=== PATIENT | male | born 1940 | race American Indian/Alaskan Native ===

== ENCOUNTER 2017-09-28 18:42 | Emergency (ER) | payer MEDICARE ==
[2017-09-28 20:15] LABS: Bilirubin,Urine NEG (Negative); Blood,Urine NEG (Negative); Color,Urine Yellow (Yellow); Nitrite,Urine NEG (Negative); Urobilinogen,Urine < 2.0 mg/dL (<2.0)
[2017-09-28] MEDS ORDERED: TYLENOL PO ONE (21:46)
--- NOTE | 2017-09-28 21:49 | Emergency Department Report ---
ED Back Pain/Injury HPI - General Chief Complaint: Pain General Stated Complaint: GOUT PAIN Time Seen by Provider: 09/28/17 21:15 Source: patient Limitations: No Limitations - History of Present Illness Initial Comments: 76-year-old male past medical history gout, chronic knee and lower back and hip pain. Presents with complaint of 3 weeks of persistent lower back and hip pain. States he has taken some [id number] analgesics with minimal relief of pain. Denies any recent falls denies any recent fever chills nausea vomiting abdominal pain or chest pain. Patient is ambulatory without assistance. States he has been opening up his garage door manually this week and may have strained his lower back. Denies bladder or bowel incontinence. MD Complaint: back pain Onset/Timin -: week(s) Place: home Severity: moderate Severity scale (0 -10): 6 Quality: aching Consistency: constant Improves With: none Context: while lifting, turning/twisting, bending Associated Symptoms: denies other symptoms - Related Data Home Medications Medication Instructions Recorded Confirmed Last Taken Prednisone [predniSONE 10 mg 10 mg PO 04/22/13 04/22/13 04/21/13 18:00 (6-Day Pack, 21 Tabs)] Triamterene [Dyrenium] 37.5 mg PO 04/22/13 04/22/13 12/04/15 Previous Rx's Medication Instructions Recorded Last Taken Type Hydrocodone Bit/Acetaminophen 1 each PO Q4-6H PRN #12 tablet 04/22/13 Unknown Rx [Lortab 5-500 Tablet] Diclofenac [Ko Acevedo] 75 mg PO Q12H #60 tablet 01/05/14 Unknown Rx Cyclobenzaprine HCl [Flexeril 5 MG 5 mg PO TID PRN #30 tab 12/04/15 Unknown Rx TAB] oxyCODONE /ACETAMINOPHEN [Percocet 1 tab PO Q6HR PRN #20 tablet 12/04/15 Unknown Rx 5/325] HYDROcodone/APAP 5-325 [[place] 1 each PO Q8HR PRN #20 tablet 07/09/16 Unknown Rx 5-325 mg TAB] Acetaminophen [Acetaminophen TAB] 500 mg PO Q6HR PRN #30 tablet 09/28/17 Unknown Rx Diclofenac Sodium 50 mg PO BID PRN #20 tablet. 09/28/17 Unknown Rx Allergies Allergy/AdvReac Type Severity Reaction Status Date / Time No Known Allergies Allergy Unverified 09/28/17 22:01 ED Review of Systems ROS: Stated complaint: GOUT PAIN Other details as noted in HPI Constitutional: denies: chills, fever Eyes: denies: eye pain, eye discharge, vision change ENT: denies: ear pain, throat pain Respiratory: denies: cough, shortness of breath, wheezing Cardiovascular: denies: chest pain, palpitations Endocrine: no symptoms reported Gastrointestinal: denies: abdominal pain, nausea, diarrhea Genitourinary: denies: urgency, dysuria Musculoskeletal: as per HPI (history of chronic back and hip pain). denies: back pain, joint swelling, arthralgia Skin: denies: rash, lesions Neurological: denies: headache, weakness, paresthesias Psychiatric: denies: anxiety, depression Hematological/Lymphatic: denies: easy bleeding, easy bruising ED Past Medical Hx - Past Medical History Previous Medical History?: Yes Hx Hypertension: Yes Hx Arthritis: Yes (GOUT) - Surgical History Past Surgical History?: No - Social History Smoking Status: Former Smoker Substance Use Type: None - Medications Home Medications: Home Medications Medication Instructions Recorded Confirmed Last Taken Type Hydrocodone Bit/Acetaminophen 1 each PO Q4-6H PRN #12 tablet 04/22/13 Unknown Rx [Lortab 5-500 Tablet] Prednisone [predniSONE 10 mg 10 mg PO 04/22/13 04/22/13 04/21/13 18:00 History (6-Day Pack, 21 Tabs)] Triamterene [Dyrenium] 37.5 mg PO 04/22/13 04/22/13 12/04/15 History Maryam Acevedo [Ko Acevedo] 75 mg PO Q12H #60 tablet 01/05/14 Unknown Rx Cyclobenzaprine HCl [Flexeril 5 MG 5 mg PO TID PRN #30 tab 12/04/15 Unknown Rx TAB] oxyCODONE /ACETAMINOPHEN [Percocet 1 tab PO Q6HR PRN #20 tablet 12/04/15 Unknown Rx 5/325] HYDROcodone/APAP 5-325 [[place] 1 each PO Q8HR PRN #20 tablet 07/09/16 Unknown Rx 5-325 mg TAB] Acetaminophen [Acetaminophen TAB] 500 mg PO Q6HR PRN #30 tablet 09/28/17 Unknown Rx Diclofenac Sodium 50 mg PO BID PRN #20 tablet. 09/28/17 Unknown Rx ED Physical Exam - General Limitations: No Limitations General appearance: alert, in no apparent distress - Head Head exam: Present: atraumatic, normocephalic - Eye Eye exam: Present: normal appearance, PERRL, EOMI - ENT ENT exam: Present: mucous membranes moist - Neck Neck exam: Present: normal inspection - Respiratory Respiratory exam: Present: normal lung sounds bilaterally. Absent: respiratory distress - Cardiovascular Cardiovascular Exam: Present: regular rate, normal rhythm. Absent: systolic murmur, diastolic murmur, rubs, gallop - GI/Abdominal GI/Abdominal exam: Present: soft, normal bowel sounds - Rectal Rectal exam: Present: deferred - Extremities Exam Extremities exam: Present: normal inspection - Back Exam Back exam: Present: normal inspection - Neurological Exam Neurological exam: Present: alert, oriented X3, CN II-XII intact, normal gait - Expanded Neurological Exam Expanded Patient oriented to: Present: person, place, time Cranial nerves: EOM's Intact: Normal Cerebellar function: Finger to Nose: Normal, Heel to Moon: Normal Sensory exam: Upper Extremity Light Touch: Normal, Lower Extremity Light Touch: Normal Motor strength exam: RUE: 5, LUE: 5, RLE: 5, LLE: 5 Best Eye Response (Porsha): (1) no response Best Motor Response (Porsha): (6) obeys commands Best Verbal Response (Porsha): (5) oriented Porsha Total: 12 - Psychiatric Psychiatric exam: Present: normal affect, normal mood - Skin Skin exam: Present: warm, dry, intact, normal color. Absent: rash ED Course Vital Signs 09/28/17 09/28/17 19:17 21:53 Temperature 97.9 F Pulse Rate 81 Respiratory 20 18 Rate Blood Pressure 131/75 O2 Sat by Pulse 97 Oximetry ED Medical Decision Making - Medical Decision Making A/P: Chronic back and hip pain 1-patient is ambulatory with no direct trauma. I offered patient to do x-rays of his lower back and hips but patient states that he has had several x-rays within the last year that showed consistent arthritic changes. As patient is ambulatory and good strength in all extremities is reasonable to forego imaging at this time 2-extra strength Tylenol when necessary, short course diclofenac when necessary 3-PRIMARY care and orthopedics f/u Critical care attestation.: If time is entered above; I have spent that time in minutes in the direct care of this critically ill patient, excluding procedure time. ED Disposition Clinical Impression: Osteoarthritis Qualifiers: Osteoarthritis location: hip Osteoarthritis type: unspecified Laterality: bilateral Qualified Code(s): M16.0 - Bilateral primary osteoarthritis of hip Chronic hip pain Qualifiers: Laterality: unspecified laterality Qualified Code(s): M25.559 - Pain in unspecified hip Disposition: TO HOME OR SELFCARE Is pt being admited?: No Does the pt Need Aspirin: No Condition: Stable Instructions: Chronic Pain (ED), Musculoskeletal Pain (ED), Arthralgia (ED) Prescriptions: Acetaminophen [Acetaminophen TAB] 500 mg PO Q6HR PRN #30 tablet PRN Reason: Pain Diclofenac Sodium 50 mg PO BID PRN #20 tablet.dr [place] Reason: Pain Referrals: [facility] [Provider Group] - 3-5 Days [facility] [Outside] - 3-5 Days [facility] [Outside] - 3-5 Days MICHELLE SHAH MD [Staff Physician] - 3-5 Days Time of Disposition: 22:00
[2017-09-28 22:13] VITALS: BP 132/86
== END 2017-09-28 22:12 | disposition home or self-care (01) ==
LOC: ED 18:42
DX: M16.0 Bilateral primary osteoarthritis of hip (principal); G89.29 Other chronic pain; I10 Essential (primary) hypertension; M10.9 Gout, unspecified; Z87.891 Personal history of nicotine dependence
CPT/HCPCS: 81001; 99283

== ENCOUNTER 2018-01-02 11:46 | Emergency (ER) | payer MEDICARE ==
[2018-01-02 11:57] VITALS: BP 140/70
[2018-01-02] MEDS ORDERED: TORADOL IM ONE (14:36)
--- NOTE | 2018-01-02 14:41 | Emergency Department Report ---
ED Back Pain/Injury HPI - General Chief Complaint: Back Pain/Injury Stated Complaint: PULLED MUSCLE RIGHT SIDE Time Seen by Provider: 01/02/18 14:27 Source: patient Limitations: No Limitations - History of Present Illness Initial Comments: 77-year-old male with a past medical history of gout, arthritis, and lower back pain 1 month presents to the hospital with complaints of intermittent right lower back pain. Pain is aching, intermittent, worse with movement and palpation. Triage states that pain radiates dilate the patient denies leg numbness appears to lesions. Symptoms started while bending down to lift an object. He denies fever, dysuria, hematuria, nausea, vomiting, paresthesias, or weakness. Patient states he has been treated with Diflucan and Tramadol for pain in the past which seemed to help but he no longer has any meds. PMD Jack Esposito - Related Data Home Medications Medication Instructions Recorded Confirmed Last Taken Prednisone [predniSONE 10 mg 10 mg PO 04/22/13 04/22/13 04/21/13 18:00 (6-Day Pack, 21 Tabs)] Triamterene [Dyrenium] 37.5 mg PO 04/22/13 04/22/13 12/04/15 Previous Rx's Medication Instructions Recorded Last Taken Type Hydrocodone Bit/Acetaminophen 1 each PO Q4-6H PRN #12 tablet 04/22/13 Unknown Rx [Lortab 5-500 Tablet] Diclofenac [Ko Acevedo] 75 mg PO Q12H #60 tablet 01/05/14 Unknown Rx Cyclobenzaprine HCl [Flexeril 5 MG 5 mg PO TID PRN #30 tab 12/04/15 Unknown Rx TAB] oxyCODONE /ACETAMINOPHEN [Percocet 1 tab PO Q6HR PRN #20 tablet 12/04/15 Unknown Rx 5/325] HYDROcodone/APAP 5-325 [[place] 1 each PO Q8HR PRN #20 tablet 07/09/16 Unknown Rx 5-325 mg TAB] Acetaminophen [Acetaminophen TAB] 500 mg PO Q6HR PRN #30 tablet 09/28/17 Unknown Rx Diclofenac Sodium 50 mg PO BID PRN #20 tablet. 01/02/18 Unknown Rx traMADol [Ultram 50 MG tab] 50 mg PO Q6HR PRN #20 tablet 01/02/18 Unknown Rx Allergies Allergy/AdvReac Type Severity Reaction Status Date / Time Penicillins Allergy Rash Verified 01/02/18 11:54 ED Review of Systems ROS: Stated complaint: PULLED MUSCLE RIGHT SIDE Other details as noted in HPI Comment: All other systems reviewed and negative ED Past Medical Hx - Past Medical History Previous Medical History?: Yes Hx Hypertension: Yes Hx Arthritis: Yes (GOUT) - Surgical History Past Surgical History?: No - Social History Smoking Status: Never Smoker Substance Use Type: None - Medications Home Medications: Home Medications Medication Instructions Recorded Confirmed Last Taken Type Hydrocodone Bit/Acetaminophen 1 each PO Q4-6H PRN #12 tablet 04/22/13 Unknown Rx [Lortab 5-500 Tablet] Prednisone [predniSONE 10 mg 10 mg PO 04/22/13 04/22/13 04/21/13 18:00 History (6-Day Pack, 21 Tabs)] Triamterene [Dyrenium] 37.5 mg PO 04/22/13 04/22/13 12/04/[address] [Ko Acevedo] 75 mg PO Q12H #60 tablet 01/05/14 Unknown Rx Cyclobenzaprine HCl [Flexeril 5 MG 5 mg PO TID PRN #30 tab 12/04/15 Unknown Rx TAB] oxyCODONE /ACETAMINOPHEN [Percocet 1 tab PO Q6HR PRN #20 tablet 12/04/15 Unknown Rx 5/325] HYDROcodone/APAP 5-325 [[place] 1 each PO Q8HR PRN #20 tablet 07/09/16 Unknown Rx 5-325 mg TAB] Acetaminophen [Acetaminophen TAB] 500 mg PO Q6HR PRN #30 tablet 09/28/17 Unknown Rx Diclofenac Sodium 50 mg PO BID PRN #20 tablet. 01/02/18 Unknown Rx traMADol [Ultram 50 MG tab] 50 mg PO Q6HR PRN #20 tablet 01/02/18 Unknown Rx ED Physical Exam - General Limitations: No Limitations - Other Other exam information: General: No limitations, patient is alert in no acute distress Head exam: Atraumatic, normocephalic Eyes exam: Normal appearance ENT: Moist mucous membrane, normal oropharynx Neck exam: Normal inspection, full range of motion, no meningismus nontender Respiratory exam: Clear to auscultation bilateral, no wheezes, rales, crackles Cardiovascular: Normal rate and rhythm, normal heart sounds Abdomen: Soft, nondistended, and nontender, with normal bowel sounds, no rebound, or guarding Extremity: Full range of motion normal inspection no deformity Back: Normal Inspection, full range of motion, no midline tenderness. Right- sided back muscular tenderness. Mild swelling to second MTP joint of r hand Neurologic: Alert, oriented x3, cranial nerves intact, no motor or sensory deficit Psychiatric: normal affect, normal mood Skin: Warm, dry, intact ED Course Vital Signs 01/02/18 11:54 Temperature 98.9 F Pulse Rate 72 Respiratory 16 Rate Blood Pressure 140/70 O2 Sat by Pulse 100 Oximetry ED Medical Decision Making - Medical Decision Making Patient will be treated symptomatically with diclofenac and tramadol as requested and encouraged to follow up with PMD for further evaluation - Differential Diagnosis muscle strain, radiculopathy, Critical Care Time: No Critical care attestation.: If time is entered above; I have spent that time in minutes in the direct care of this critically ill patient, excluding procedure time. ED Disposition Clinical Impression: Back strain Disposition: - TO HOME OR SELFCARE Is pt being admited?: No Does the pt Need Aspirin: No Condition: Stable Instructions: Low Back Strain (ED) Additional Instructions: Take the medication as prescribed. Return if symptoms worsen. Follow up with your doctor or the doctor provided. Prescriptions: Diclofenac Sodium 50 mg PO BID PRN #20 tablet. PRN Reason: Pain traMADol [Ultram 50 MG tab] 50 mg PO Q6HR PRN #20 tablet PRN Reason: Pain Referrals: PRISCILA ROACH MD [Staff Physician] - 3-5 Days Time of Disposition: 14:45
== END 2018-01-02 15:08 | disposition home or self-care (01) ==
LOC: ED 11:46
DX: S39.012A Strain of muscle, fascia and tendon of lower back, initial encounter (principal); I10 Essential (primary) hypertension; M19.90 Unspecified osteoarthritis, unspecified site; Z88.0 Allergy status to penicillin; X58.XXXA Exposure to other specified factors, initial encounter; Y93.89 Activity, other specified; Y92.89 Other specified places as the place of occurrence of the external cause; Y99.8 Other external cause status
CPT/HCPCS: 96372; 99282; J1885

== ENCOUNTER 2018-02-06 12:23 | Emergency (ER) | payer MEDICARE ==
[2018-02-06 12:35] VITALS: BP 168/67
[2018-02-06] MEDS ORDERED: TYLENOL PO ONE (14:51)
--- NOTE | 2018-02-06 14:52 | Emergency Department Report ---
ED Back Pain/Injury HPI - General Chief Complaint: Back Pain/Injury Stated Complaint: BACK PAIN Time Seen by Provider: 02/06/18 14:44 Source: patient Limitations: No Limitations - History of Present Illness Initial Comments: This is a 77-year-old male here for back pain. He said he has a history of back pain and his primary care doctor is Dr. Michele Obando but he missed an appointment with him. He said he has an appointment scheduled but he needs a refill on his blood pressure medication and some other medication. She reports that 2 weeks ago he was trying to manually lift his garage door and he reinjured his back. Pain is located bilateral lower back it is 8 out of 10 and a can. Patient said he has a history of football injury in the past and he suffers from back pain. He usually takes tramadol and diclofenac that he ran out. He said he took Tylenol last night but it's not helping his pain. Denies any fever or chills. Denies any nausea or vomiting, denies any loss of bowel or bladder function. Denies any numbness or tingling to extremities. Pain is better with rest and worse with walking around. MD Complaint: back pain Onset/Timin -: week(s) Similar Symptoms Previously: Yes Place: home Radiation: none Severity: severe Severity scale (0 -10): 8 Quality: aching Consistency: constant Improves With: immobilization Worsens With: movement, walking Context: while lifting Associated Symptoms: denies: confusion, weakness, chest pain, numbness, difficulty walking, cough, difficulty urinating, diaphoresis, incontinence, fever/chills, constipation, headaches, abdominal pain, loss of appetite, malaise , nausea/vomiting, seizure, shortness of breath, syncope Treatments Prior to Arrival: acetaminophen - Related Data Home Medications Medication Instructions Recorded Confirmed Last Taken Prednisone [predniSONE 10 mg 10 mg PO 04/22/13 04/22/13 04/21/13 18:00 (6-Day Pack, 21 Tabs)] Previous Rx's Medication Instructions Recorded Last Taken Type Hydrocodone Bit/Acetaminophen 1 each PO Q4-6H PRN #12 tablet 04/22/13 Unknown Rx [Lortab 5-500 Tablet] Cyclobenzaprine HCl [Flexeril 5 MG 5 mg PO TID PRN #30 tab 12/04/15 Unknown Rx TAB] oxyCODONE /ACETAMINOPHEN [Percocet 1 tab PO Q6HR PRN #20 tablet 12/04/15 Unknown Rx 5/325] HYDROcodone/APAP 5-325 [[place] 1 each PO Q8HR PRN #20 tablet 07/09/16 Unknown Rx 5-325 mg TAB] Acetaminophen [Acetaminophen TAB] 500 mg PO Q6HR PRN #30 tablet 09/28/17 Unknown Rx Diclofenac Sodium 50 mg PO BID PRN #20 tablet. 01/02/18 Unknown Rx Diclofenac [Ko Acevedo] 75 mg PO Q12H PRN #20 tablet 02/06/18 Unknown Rx Triamterene [Dyrenium] 37.5 mg PO QAM 30 Days #30 capsule 02/06/18 Unknown Rx traMADol [Ultram 50 MG tab] 50 mg PO Q6HR PRN #20 tablet 02/06/18 Unknown Rx Allergies Allergy/AdvReac Type Severity Reaction Status Date / Time Penicillins Allergy Rash Verified 02/06/18 12:31 ED Review of Systems ROS: Stated complaint: BACK PAIN Other details as noted in HPI Constitutional: denies: chills, fever Eyes: denies: eye pain, vision change Respiratory: denies: cough, shortness of breath, SOB with exertion, SOB at rest , stridor, wheezing Cardiovascular: denies: chest pain, palpitations, dyspnea on exertion, edema, syncope, paroxysmal nocturnal dyspnea Gastrointestinal: denies: abdominal pain, nausea, vomiting, diarrhea Genitourinary: denies: hematuria Musculoskeletal: back pain. denies: joint swelling, arthralgia, myalgia Skin: denies: rash, lesions Neurological: denies: headache, weakness, numbness, paresthesias, confusion, abnormal gait, vertigo ED Past Medical Hx - Past Medical History Medical history: arthritis, hypertension Chronic back pain. Gout Surgical history: no surgical history Psychiatric history: no pertinent history Family history: diabetes, hypertension - Social History Smoking Status: Former Smoker Alcohol use: none Drug use: none ED Back Pain Physical Exam - Exam General: Vital signs noted. No distress. Alert and acting appropriately. This is a 77-year-old male well-nourished well-developed in no acute distress. Lungs: CTAB, normal work of breathing CV: S1, S2. Regular rate and rhythm Psych: Normal mood and behavior Back/Abdomen: No Abdominal Tenderness ( NTTP in all quadrants), No Perithoracic Tenderness, No Perilumbar Tenderness, No Sacroiliac Tenderness, No Flank Tenderness, No Straight Leg Raise Pain Neuro: Yes Normal Sensation (no clubbing, cyanosis or edema. +2 pulses all extremities and no neurovascular compromise.), Yes Normal DTR's, Yes Normal Gait , No Motor Weakness ED Course Vital Signs 02/06/18 12:31 Temperature 98 F Pulse Rate 59 L Respiratory 18 Rate Blood Pressure 168/67 O2 Sat by Pulse 98 Oximetry - Reevaluation(s) Reevaluation #1: 02/06/18 16:01 She receives Tylenol 500 mg by mouth in emergency room which relieved his back pain down to 310. He said he is feeling better ED Medical Decision Making - Medical Decision Making This is a 77-year-old male here report in that he injured his back while lifting a garage door that was jammed. He said he's been having back pain 2 weeks and has been taking Tylenol and it's not getting better. Patient has a history of chronic back pain and is also requesting medication refill on his diclofenac, tramadol and triamterene which she said he gets in the mail but he did not receive it and he needs blood pressure medication. This patient was seen by myself and examined ,he has chronic back pain with acute exacerbation and also here for refill of medication. Patient is stable and pain management with Tylenol. He said he is feeling better. No need for any diagnostics or laboratory testing. A/P 1: Acute exacerbation of chronic lower back pain-Tylenol 500 mg given relief of pain and he feels better and we'll discharge home on diclofenac and tramadol which are refills 2: Essential hypertension-patient on triamterene and will refill his triamterene and he is to follow up with his primary care physician as scheduled. Patient educated on medication, Rice therapy, diagnosis, and to follow up with primary care physician as discussed. Patient will also be referred to orthopedic doctor at his request. Patient discharged home in stable condition to follow up with orthopedic doctor in 3 to 5 days and/or to return to the emergency room if his condition worsens. Patient vital signs are stable he is afebrile and nontoxic in appearance. He voices understanding of discharge instruction and discharged home with prescription for triamterene, diclofenac and tramadol. Critical care attestation.: If time is entered above; I have spent that time in minutes in the direct care of this critically ill patient, excluding procedure time. ED Disposition Clinical Impression: Acute exacerbation of chronic low back pain, Medication refill Hypertension Qualifiers: Hypertension type: essential hypertension Qualified Code(s): I10 - Essential ( primary) hypertension Disposition: TO HOME OR SELFCARE Is pt being admited?: No Does the pt Need Aspirin: No Condition: Stable Instructions: Hypertension (ED), Chronic Back Pain (ED) Additional Instructions: Follow-up the primary care physician as scheduled Follow up with orthopedic doctor as discussed. See referral in discharge instruction paperwork Please do not drive or operate heavy machinery while taking tramadol as this medication causes drowsiness Prescriptions: Diclofenac Dr [Voltaren Dr] 75 mg PO Q12H PRN #20 tablet PRN Reason: pain traMADol [Ultram 50 MG tab] 50 mg PO Q6HR PRN #20 tablet PRN Reason: Pain Triamterene [Dyrenium] 37.5 mg PO QAM 30 Days #30 capsule Referrals: PRIMARY CAREMD [Primary Care Provider] - 3-5 Days [facility] [Outside] - 3-5 Days MICHELLE SHAH MD [Staff Physician] - 3-5 Days
== END 2018-02-06 16:18 | disposition home or self-care (01) ==
LOC: ED 12:23
DX: M54.5 Low back pain (principal); G89.29 Other chronic pain; I10 Essential (primary) hypertension
CPT/HCPCS: 99282

== ENCOUNTER 2018-02-17 13:29 | Emergency (ER) | payer MEDICARE ==
[2018-02-17 13:46] VITALS: BP 141/62
--- NOTE | 2018-02-17 14:41 | Emergency Department Report ---
ED Rash HPI - HPI Chief Complaint: Skin Rash Stated Complaint: SPIDER BITE L ARM Time Seen by Provider: 02/17/18 14:22 Duration: 4 Days Location: Upper Extremities Suspected Cause: Insect Rash Symptoms: Yes Itching, No Facial Swelling, No Tongue/Oral Swelling, No Breathing Difficulties, No Choking Sensation, No Wheezing/Dyspnea, No Peeling, No Blistering, No Fever, No Lightheaded, No Malaise Other History: Patient states he was bitten on his left upper extremity several days ago and has had itching. Patient now is experiencing some diffuse redness to the left forearm. ED Review of Systems ROS: Stated complaint: SPIDER BITE L ARM Other details as noted in HPI Comment: All other systems reviewed and negative ED Past Medical Hx - Past Medical History Hx Hypertension: Yes Hx Arthritis: Yes (GOUT) Additional medical history: Chronic back pain. Gout - Surgical History Past Surgical History?: No - Social History Smoking Status: Former Smoker Substance Use Type: None - Medications Home Medications: Home Medications Medication Instructions Recorded Confirmed Last Taken Type Hydrocodone Bit/Acetaminophen 1 each PO Q4-6H PRN #12 tablet 04/22/13 Unknown Rx [Lortab 5-500 Tablet] Prednisone [predniSONE 10 mg 10 mg PO 04/22/13 04/22/13 04/21/13 18:00 History (6-Day Pack, 21 Tabs)] Cyclobenzaprine HCl [Flexeril 5 MG 5 mg PO TID PRN #30 tab 12/04/15 Unknown Rx TAB] oxyCODONE /ACETAMINOPHEN [Percocet 1 tab PO Q6HR PRN #20 tablet 12/04/15 Unknown Rx 5/325] HYDROcodone/APAP 5-325 [[place] 1 each PO Q8HR PRN #20 tablet 07/09/16 Unknown Rx 5-325 mg TAB] Acetaminophen [Acetaminophen TAB] 500 mg PO Q6HR PRN #30 tablet 09/28/17 Unknown Rx Diclofenac Sodium 50 mg PO BID PRN #20 tablet. 01/02/18 Unknown Rx Maryam Acevedo [Ko Acevedo] 75 mg PO Q12H PRN #20 tablet 02/06/18 Unknown Rx Triamterene [Dyrenium] 37.5 mg PO QAM 30 Days #30 capsule 02/06/18 Unknown Rx traMADol [Ultram 50 MG tab] 50 mg PO Q6HR PRN #20 tablet 02/06/18 Unknown Rx Doxycycline [Vibramycin CAP] 100 mg PO Q12HR #14 capsule 02/17/18 Unknown Rx Triamcinolone 0.1% [Kenalog 0.1% 1 applic TP TID #1 tube 02/17/18 Unknown Rx CREAM] diphenhydrAMINE [Benadryl CAP] 25 mg PO Q6HR PRN #15 capsule 02/17/18 Unknown Rx Rash Exam - Exam General: Vital signs noted. No distress. Alert and acting appropriately. HEENT: No Periorbital Edema, No Conjuctival Injection, No Chemosis, No Perioral Edema, No Tongue Edema, No Uvular Edema, No Compromised Airway, No Drooling Lungs: Yes Good Air Exchange (Normal Breath Sounds), No Wheezes, No Ronchi, No Stridor, No Cough, No Labored Respirations, No Retractions, No Use of Accessory Muscles, No Other Abnormal Lung Sounds Heart: Yes Regular, No Murmur Skin: Yes Maculopapular Rash (left forarm with 2 sm punture type lesions) Other: Positive: Abdomen Normal, Neurologic Normal, Musculoskeletal Normal ED Course Vital Signs 02/17/18 13:44 Temperature 98.2 F Pulse Rate 58 L Respiratory 18 Rate Blood Pressure 141/62 O2 Sat by Pulse 100 Oximetry Critical care attestation.: If time is entered above; I have spent that time in minutes in the direct care of this critically ill patient, excluding procedure time. ED Disposition Clinical Impression: Insect bite Qualifiers: Encounter type: initial encounter Qualified Code(s): W57.XXXA - Bitten or stung by nonvenomous insect and other nonvenomous arthropods, initial encounter Disposition: DC-01 TO HOME OR SELFCARE Is pt being admited?: No Does the pt Need Aspirin: No Condition: Stable Instructions: Insect Bite or Sting (ED) Prescriptions: diphenhydrAMINE [Benadryl CAP] 25 mg PO Q6HR PRN #15 capsule PRN Reason: Itching Doxycycline [Vibramycin CAP] 100 mg PO Q12HR #14 capsule Triamcinolone 0.1% [Kenalog 0.1% CREAM] 1 applic TP TID #1 tube
== END 2018-02-17 15:01 | disposition home or self-care (01) ==
LOC: ED 13:29
DX: R21 Rash and other nonspecific skin eruption (principal); I10 Essential (primary) hypertension; M19.90 Unspecified osteoarthritis, unspecified site; Z87.891 Personal history of nicotine dependence; W57.XXXA Bitten or stung by nonvenomous insect and other nonvenomous arthropods, initial encounter; Y93.89 Activity, other specified; Y99.8 Other external cause status; Y92.89 Other specified places as the place of occurrence of the external cause
CPT/HCPCS: 99282

== ENCOUNTER 2018-03-13 13:56 | Emergency (ER) | payer MEDICARE ==
[2018-03-13 14:10] VITALS: BP 183/79
--- NOTE | 2018-03-13 17:45 | Emergency Department Report ---
ED General Adult HPI - General Chief complaint: Medical Clearance Stated complaint: BACK PAIN/ BLOOD WORK Time Seen by Provider: 03/13/18 17:12 Source: patient Mode of arrival: Ambulatory Limitations: No Limitations - History of Present Illness Initial comments: Patient is a 77-year-old male who is complaining of low back pain but also elevated blood pressure. Patient is out of his blood pressure medicines. Patient is in between doctors as his doctor moved out of town and he does not have a referral to a new physician at this time. Patient is denying any chest pain shortness of breath fevers chills nausea or vomitus time. Patient does have chronic low back pain as well which is a 6 out of 10 in severity her source when he moves and is aching. - Related Data Home Medications Medication Instructions Recorded Confirmed Last Taken Prednisone [predniSONE 10 mg 10 mg PO 04/22/13 04/22/13 04/21/13 18:00 (6-Day Pack, 21 Tabs)] Previous Rx's Medication Instructions Recorded Last Taken Type Hydrocodone Bit/Acetaminophen 1 each PO Q4-6H PRN #12 tablet 04/22/13 Unknown Rx [Lortab 5-500 Tablet] Cyclobenzaprine HCl [Flexeril 5 MG 5 mg PO TID PRN #30 tab 12/04/15 Unknown Rx TAB] oxyCODONE /ACETAMINOPHEN [Percocet 1 tab PO Q6HR PRN #20 tablet 12/04/15 Unknown Rx 5/325] HYDROcodone/APAP 5-325 [[place] 1 each PO Q8HR PRN #20 tablet 07/09/16 Unknown Rx 5-325 mg TAB] Acetaminophen [Acetaminophen TAB] 500 mg PO Q6HR PRN #30 tablet 09/28/17 Unknown Rx Diclofenac Sodium 50 mg PO BID PRN #20 tablet. 01/02/18 Unknown Rx Diclofenac [Ko Acevedo] 75 mg PO Q12H PRN #20 tablet 02/06/18 Unknown Rx Doxycycline [Vibramycin CAP] 100 mg PO Q12HR #14 capsule 02/17/18 Unknown Rx Triamcinolone 0.1% [Kenalog 0.1% 1 applic TP TID #1 tube 02/17/18 Unknown Rx CREAM] diphenhydrAMINE [Benadryl CAP] 25 mg PO Q6HR PRN #15 capsule 02/17/18 Unknown Rx Triamterene [Dyrenium] 37.5 mg PO QAM 30 Days #30 capsule 03/13/18 Unknown Rx traMADol [Ultram 50 MG tab] 50 mg PO Q6HR PRN #6 tablet 03/13/18 Unknown Rx Allergies Allergy/AdvReac Type Severity Reaction Status Date / Time Penicillins Allergy Rash Verified 02/06/18 12:31 ED Review of Systems ROS: Stated complaint: BACK PAIN/ BLOOD WORK Other details as noted in HPI Comment: All other systems reviewed and negative Musculoskeletal: other (H and a small ganglion cyst on the right) ED Past Medical Hx - Past Medical History Hx Hypertension: Yes Hx Arthritis: Yes (GOUT) Additional medical history: Chronic back pain. Gout - Social History Smoking Status: Former Smoker - Medications Home Medications: Home Medications Medication Instructions Recorded Confirmed Last Taken Type Hydrocodone Bit/Acetaminophen 1 each PO Q4-6H PRN #12 tablet 04/22/13 Unknown Rx [Lortab 5-500 Tablet] Prednisone [predniSONE 10 mg 10 mg PO 04/22/13 04/22/13 04/21/13 18:00 History (6-Day Pack, 21 Tabs)] Cyclobenzaprine HCl [Flexeril 5 MG 5 mg PO TID PRN #30 tab 12/04/15 Unknown Rx TAB] oxyCODONE /ACETAMINOPHEN [Percocet 1 tab PO Q6HR PRN #20 tablet 12/04/15 Unknown Rx 5/325] HYDROcodone/APAP 5-325 [[place] 1 each PO Q8HR PRN #20 tablet 07/09/16 Unknown Rx 5-325 mg TAB] Acetaminophen [Acetaminophen TAB] 500 mg PO Q6HR PRN #30 tablet 09/28/17 Unknown Rx Diclofenac Sodium 50 mg PO BID PRN #20 tablet. 01/02/18 Unknown Rx Maryam Acevedo [Ko Acevedo] 75 mg PO Q12H PRN #20 tablet 02/06/18 Unknown Rx Doxycycline [Vibramycin CAP] 100 mg PO Q12HR #14 capsule 02/17/18 Unknown Rx Triamcinolone 0.1% [Kenalog 0.1% 1 applic TP TID #1 tube 02/17/18 Unknown Rx CREAM] diphenhydrAMINE [Benadryl CAP] 25 mg PO Q6HR PRN #15 capsule 02/17/18 Unknown Rx Triamterene [Dyrenium] 37.5 mg PO QAM 30 Days #30 capsule 03/13/18 Unknown Rx traMADol [Ultram 50 MG tab] 50 mg PO Q6HR PRN #6 tablet 03/13/18 Unknown Rx ED Physical Exam - General Limitations: No Limitations General appearance: alert, in no apparent distress - Head Head exam: Present: atraumatic, normocephalic - Eye Eye exam: Present: normal appearance - ENT ENT exam: Present: mucous membranes moist - Neck Neck exam: Present: normal inspection - Respiratory Respiratory exam: Present: normal lung sounds bilaterally. Absent: respiratory distress - Cardiovascular Cardiovascular Exam: Present: regular rate, normal rhythm. Absent: systolic murmur, diastolic murmur, rubs, gallop - GI/Abdominal GI/Abdominal exam: Present: soft, normal bowel sounds. Absent: distended, tenderness, guarding - Rectal Rectal exam: Present: deferred - Extremities Exam Extremities exam: Present: normal inspection - Back Exam Back exam: Present: normal inspection - Neurological Exam Neurological exam: Present: alert, oriented X3 - Psychiatric Psychiatric exam: Present: normal affect, normal mood - Skin Skin exam: Present: warm, dry, intact, normal color. Absent: rash ED Course Vital Signs 03/13/18 14:05 Temperature 98.4 F Pulse Rate 83 Respiratory 16 Rate Blood Pressure 183/79 O2 Sat by Pulse 98 Oximetry ED Medical Decision Making - Medical Decision Making Because the patient does have [employer] insurance courtesy medication refill be done today. Patient also referred to a new physician to take care of his primary care needs. Patient was given 6 Ultram for his chronic back pain. Critical care attestation.: If time is entered above; I have spent that time in minutes in the direct care of this critically ill patient, excluding procedure time. ED Disposition Clinical Impression: Hypertensive urgency Chronic back pain Qualifiers: Back pain location: low back pain Back pain laterality: bilateral Sciatica presence: without sciatica Qualified Code(s): M54.5 - Low back pain; G89.29 - Other chronic pain Disposition: DC-01 TO HOME OR SELFCARE Is pt being admited?: No Does the pt Need Aspirin: No Condition: Stable Prescriptions: traMADol [Ultram 50 MG tab] 50 mg PO Q6HR PRN #6 tablet PRN Reason: Pain Triamterene [Dyrenium] 37.5 mg PO QAM 30 Days #30 capsule Referrals: KENY RODRIGUEZ MD [Staff Physician] - 3-5 Days
== END 2018-03-13 17:59 | disposition home or self-care (01) ==
LOC: ED 13:56
DX: I16.0 Hypertensive urgency (principal); G89.29 Other chronic pain; M54.5 Low back pain; I10 Essential (primary) hypertension; M19.90 Unspecified osteoarthritis, unspecified site; Z87.891 Personal history of nicotine dependence; Z88.0 Allergy status to penicillin
CPT/HCPCS: 99281

== ENCOUNTER 2018-04-21 10:49 | Emergency (ER) | payer MEDICARE ==
[2018-04-21 11:12] VITALS: BP 135/61
[2018-04-21] MEDS ORDERED: COLCHICINE PO ONE (11:35)
[2018-04-21] MEDS ORDERED: DECADRON IM ONE (11:35)
--- NOTE | 2018-04-21 11:39 | Emergency Department Report ---
ED Extremity Problem HPI - General Chief complaint: Extremity Injury, Upper Stated complaint: RT HAND GOUT SWELLING Time Seen by Provider: 04/21/18 11:17 Source: patient Mode of arrival: Ambulatory Limitations: No Limitations - History of Present Illness Initial comments: Patient is a 77-year-old [place] male past history gout who is complaining of pain into his right hand and wrist. Patient states is consistent with gouty arthritis disease had the past. Patient denies any trauma. Patient is pain is 8 out of 10 in severity hurts worse when he touches or moves his fingers. Patient denies any nausea vomiting fevers chills at this time. - Related Data Home Medications Medication Instructions Recorded Confirmed Last Taken Prednisone [predniSONE 10 mg 10 mg PO 04/22/13 04/22/13 04/21/13 18:00 (6-Day Pack, 21 Tabs)] Previous Rx's Medication Instructions Recorded Last Taken Type Hydrocodone Bit/Acetaminophen 1 each PO Q4-6H PRN #12 tablet 04/22/13 Unknown Rx [Lortab 5-500 Tablet] Cyclobenzaprine HCl [Flexeril 5 MG 5 mg PO TID PRN #30 tab 12/04/15 Unknown Rx TAB] oxyCODONE /ACETAMINOPHEN [Percocet 1 tab PO Q6HR PRN #20 tablet 12/04/15 Unknown Rx 5/325] HYDROcodone/APAP 5-325 [[place] 1 each PO Q8HR PRN #20 tablet 07/09/16 Unknown Rx 5-325 mg TAB] Acetaminophen [Acetaminophen TAB] 500 mg PO Q6HR PRN #30 tablet 09/28/17 Unknown Rx Diclofenac Sodium 50 mg PO BID PRN #20 tablet. 01/02/18 Unknown Rx Maryam Acevedo [Ko Acevedo] 75 mg PO Q12H PRN #20 tablet 02/06/18 Unknown Rx Doxycycline [Vibramycin CAP] 100 mg PO Q12HR #14 capsule 02/17/18 Unknown Rx Triamcinolone 0.1% [Kenalog 0.1% 1 applic TP TID #1 tube 02/17/18 Unknown Rx CREAM] diphenhydrAMINE [Benadryl CAP] 25 mg PO Q6HR PRN #15 capsule 02/17/18 Unknown Rx Triamterene [Dyrenium] 37.5 mg PO QAM 30 Days #30 capsule 03/13/18 Unknown Rx traMADol [Ultram 50 MG tab] 50 mg PO Q6HR PRN #6 tablet 03/13/18 Unknown Rx Colchicine 0.6 mg PO DAILY #10 capsule 04/21/18 Unknown Rx HYDROcodone/APAP 5-325 [[place] 1 each PO Q6HR PRN #15 tablet 04/21/18 Unknown Rx 5/325] Allergies Allergy/AdvReac Type Severity Reaction Status Date / Time Penicillins Allergy Rash Verified 02/06/18 12:31 ED Review of Systems ROS: Stated complaint: RT HAND GOUT SWELLING Other details as noted in HPI Comment: All other systems reviewed and negative ED Past Medical Hx - Past Medical History Hx Hypertension: Yes Hx Arthritis: Yes (GOUT) Additional medical history: Chronic back pain. Gout - Social History Smoking Status: Former Smoker Substance Use Type: None - Medications Home Medications: Home Medications Medication Instructions Recorded Confirmed Last Taken Type Hydrocodone Bit/Acetaminophen 1 each PO Q4-6H PRN #12 tablet 04/22/13 Unknown Rx [Lortab 5-500 Tablet] Prednisone [predniSONE 10 mg 10 mg PO 04/22/13 04/22/13 04/21/13 18:00 History (6-Day Pack, 21 Tabs)] Cyclobenzaprine HCl [Flexeril 5 MG 5 mg PO TID PRN #30 tab 12/04/15 Unknown Rx TAB] oxyCODONE /ACETAMINOPHEN [Percocet 1 tab PO Q6HR PRN #20 tablet 12/04/15 Unknown Rx 5/325] HYDROcodone/APAP 5-325 [[place] 1 each PO Q8HR PRN #20 tablet 07/09/16 Unknown Rx 5-325 mg TAB] Acetaminophen [Acetaminophen TAB] 500 mg PO Q6HR PRN #30 tablet 09/28/17 Unknown Rx Diclofenac Sodium 50 mg PO BID PRN #20 tablet. 01/02/18 Unknown Rx Diclofenac [Ko Acevedo] 75 mg PO Q12H PRN #20 tablet 02/06/18 Unknown Rx Doxycycline [Vibramycin CAP] 100 mg PO Q12HR #14 capsule 02/17/18 Unknown Rx Triamcinolone 0.1% [Kenalog 0.1% 1 applic TP TID #1 tube 02/17/18 Unknown Rx CREAM] diphenhydrAMINE [Benadryl CAP] 25 mg PO Q6HR PRN #15 capsule 02/17/18 Unknown Rx Triamterene [Dyrenium] 37.5 mg PO QAM 30 Days #30 capsule 03/13/18 Unknown Rx traMADol [Ultram 50 MG tab] 50 mg PO Q6HR PRN #6 tablet 03/13/18 Unknown Rx Colchicine 0.6 mg PO DAILY #10 capsule 04/21/18 Unknown Rx HYDROcodone/APAP 5-325 [[place] 1 each PO Q6HR PRN #15 tablet 04/21/18 Unknown Rx 5/325] ED Physical Exam - General Limitations: No Limitations General appearance: alert, in no apparent distress - Head Head exam: Present: atraumatic, normocephalic - Eye Eye exam: Present: normal appearance - ENT ENT exam: Present: mucous membranes moist - Neck Neck exam: Present: normal inspection - Respiratory Respiratory exam: Absent: respiratory distress - Cardiovascular Cardiovascular Exam: Absent: systolic murmur, diastolic murmur, rubs, gallop - GI/Abdominal GI/Abdominal exam: Present: soft. Absent: distended - Rectal Rectal exam: Present: deferred - Extremities Exam Extremities exam: Present: normal inspection, other (with swelling warmth) - Back Exam Back exam: Present: normal inspection - Neurological Exam Neurological exam: Present: alert, oriented X3 - Psychiatric Psychiatric exam: Present: normal affect, normal mood - Skin Skin exam: Present: warm, dry, intact, normal color. Absent: rash ED Course Vital Signs 04/21/18 11:09 Temperature 97.7 F Pulse Rate 69 Respiratory 16 Rate Blood Pressure 135/61 O2 Sat by Pulse 98 Oximetry Critical care attestation.: If time is entered above; I have spent that time in minutes in the direct care of this critically ill patient, excluding procedure time. ED Disposition Clinical Impression: Acute gout Qualifiers: Gout site: hand Gout etiology: unspecified cause Laterality: right Qualified Code(s): M10.9 - Gout, unspecified Disposition: DC- TO HOME OR SELFCARE Is pt being admited?: No Does the pt Need Aspirin: No Condition: Stable Instructions: Acute Gouty Arthritis (ED) Time of Disposition: 11:39
== END 2018-04-21 11:52 | disposition home or self-care (01) ==
LOC: ED 10:49
DX: M10.031 Idiopathic gout, right wrist (principal); I10 Essential (primary) hypertension; M19.90 Unspecified osteoarthritis, unspecified site; Z87.891 Personal history of nicotine dependence; Z88.0 Allergy status to penicillin
CPT/HCPCS: 96372; 99282; J1100

== ENCOUNTER 2018-05-19 15:12 | Emergency (ER) | payer MEDICARE ==
[2018-05-19 15:20] VITALS: BP 155/71
[2018-05-19] MEDS ORDERED: DECADRON IM STA (16:02)
--- NOTE | 2018-05-19 16:02 | Emergency Department Report ---
Upper Extremity - HPI Chief Complaint: Extremity Injury, Upper Stated Complaint: (R) HAND SWOLLEN Time Seen by Provider: 05/19/18 15:40 Upper Extremity: Right Hand (right hand swelling with some redness.) Occurred When: >5 Days (1 week) Mechanism: Other (gout flareup) Severity: severe (8/10) Symptoms: Yes Pain with Movement (8/10), Yes Limited Range of Movement (right hand), Yes Swelling (right hand), No Deformity, No Numbness, No Weakness, No Bruising/Ecchymosis, No Laceration or Abrasion Other History: This is a 77-year-old male who is here reporting that he has a gout flare up. He said he went to [facility] a few days ago and he was treated with a shot of steroid and sent home with some colcrys. He said he went home and he ate some bologna and some other things that he is not supposed to eat and the got is still there. He said he did not get this a steroid Dosepak which usually works with his got flare up. Patient says he just got a primary care at [facility] and he will be scheduled appointment for visit. He said this is his third gout flareup for the year and he was on allopurinol in the past but he does not have a primary care so when he goes to [facility] primary care he will ask about that. Denies any fever or chills or any trauma. He said got flare up almost present in his hands. Pain is worse with movement and better with rest. He states that he took Colcrys but is not helping indicated she needs steroids. ED Review of Systems ROS: Stated complaint: (R) HAND SWOLLEN Other details as noted in HPI Constitutional: denies: chills, fever ENT: denies: ear pain, throat pain Respiratory: denies: cough, shortness of breath, SOB with exertion, SOB at rest , stridor, wheezing Cardiovascular: denies: chest pain, palpitations, edema, syncope Gastrointestinal: denies: nausea, vomiting Genitourinary: denies: urgency, dysuria Musculoskeletal: joint swelling, arthralgia. denies: back pain, myalgia Skin: denies: rash, lesions Neurological: denies: headache, weakness, numbness, paresthesias, confusion, abnormal gait, vertigo ED Past Medical Hx - Past Medical History Previous Medical History?: Yes Hx Hypertension: Yes Hx Arthritis: Yes (GOUT) Additional medical history: Chronic back pain. Gout - Surgical History Past Surgical History?: Yes - Family History Family history: hypertension - Social History Smoking Status: Former Smoker Substance Use Type: None - Medications Home Medications: Home Medications Medication Instructions Recorded Confirmed Last Taken Type Hydrocodone Bit/Acetaminophen 1 each PO Q4-6H PRN #12 tablet 04/22/13 Unknown Rx [Lortab 5-500 Tablet] Prednisone [predniSONE 10 mg 10 mg PO 04/22/13 04/22/13 04/21/13 18:00 History (6-Day Pack, 21 Tabs)] Cyclobenzaprine HCl [Flexeril 5 MG 5 mg PO TID PRN #30 tab 12/04/15 Unknown Rx TAB] oxyCODONE /ACETAMINOPHEN [Percocet 1 tab PO Q6HR PRN #20 tablet 12/04/15 Unknown Rx 5/325] HYDROcodone/APAP 5-325 [[place] 1 each PO Q8HR PRN #20 tablet 07/09/16 Unknown Rx 5-325 mg TAB] Acetaminophen [Acetaminophen TAB] 500 mg PO Q6HR PRN #30 tablet 09/28/17 Unknown Rx Diclofenac Sodium 50 mg PO BID PRN #20 tablet. 01/02/18 Unknown Rx Diclofenac [Ko Acevedo] 75 mg PO Q12H PRN #20 tablet 02/06/18 Unknown Rx Doxycycline [Vibramycin CAP] 100 mg PO Q12HR #14 capsule 02/17/18 Unknown Rx Triamcinolone 0.1% [Kenalog 0.1% 1 applic TP TID #1 tube 02/17/18 Unknown Rx CREAM] diphenhydrAMINE [Benadryl CAP] 25 mg PO Q6HR PRN #15 capsule 02/17/18 Unknown Rx Triamterene [Dyrenium] 37.5 mg PO QAM 30 Days #30 capsule 03/13/18 Unknown Rx traMADol [Ultram 50 MG tab] 50 mg PO Q6HR PRN #6 tablet 03/13/18 Unknown Rx Colchicine 0.6 mg PO DAILY #10 capsule 04/21/18 Unknown Rx HYDROcodone/APAP 5-325 [[place] 1 each PO Q6HR PRN #15 tablet 04/21/18 Unknown Rx 5/325] Colchicine 0.6 mg PO BID PRN #12 tablet 05/19/18 Unknown Rx methylPREDNISolone [Medrol Dose 4 mg PO DAILY #1 tab.ds.pk 05/19/18 Unknown Rx Chang] Upper Extremity Exam - Exam General: Vital signs noted. No distress. Alert and acting appropriately. This is a 77-year-old male well-nourished well-developed in no acute distress. Head and Torso: No HEENT Abnormality, No Neck Tenderness, No Chest/Lungs Abnormality, No Abdominal Tenderness, No Back Tenderness Shoulder Exam: Yes Normal Range of Motion in Shoulder, No Shoulder Tenderness, No Clavicle Tenderness, No Shoulder Deformity, No AC Joint Tenderness Arm Exam: No Arm/Humerus Tenderness, No Arm Deformity Elbow: Yes Normal Range of Motion in Elbow, No Elbow Tenderness, No Elbow Deformity Forearm: No Forearm Tenderness, No Forearm Deformity, No Pain with Pronation, No Pain with Supination Wrist: Yes Normal ROM in Wrist, No Wrist Tenderness, No Wrist Deformity, No Snuffbox Tenderness, No Pain with Axial Thumb Compression Hand: Yes Hand Tenderness (right hand dorsal aspect.), Yes Digit Tenderness ( right hand and fingers), Yes Normal ROM in Digit(s) (patient for range of motion but he reports that it hurts when he makes a fist and when he opens his hand.), No Hand Deformity, No Digit(s) Deformity, No Tendon Dysfunction CMS Exam: Yes Normal Distal Pulses (+2 pulses radial and ulnar.), Yes Normal Capillary Refill, Yes Normal Distal Sensation, No Broken Skin ED Course Vital Signs 05/19/18 15:17 Temperature 97.7 F Pulse Rate 76 Respiratory 20 Rate Blood Pressure 155/71 O2 Sat by Pulse 97 Oximetry - Reevaluation(s) Reevaluation #1: 05/19/18 16:45 Patient given Decadron 10 mg IM and Toradol 30 mg IM for gout flareup. He voiced his pain is down to 2/10. ED Medical Decision Making - Medical Decision Making This is a 77-year-old male patient here for gout flareup. Assessment/plan 1: Acute gouty arthritis flare-patient given Decadron 10 mg IM and Toradol 30 mg IM with relief of pain and will be sent home on Medrol Dosepak and Colcrys. I discussed the patient that he needs to follow discharge instructions on low. Food because is given multiple flareups are of the year and that he needs to schedule an appointment with his primary care doctor for follow-up for management of chronic gout with multiple flare. He voiced understanding. Patient has been here in the past and was given information on low purine diet but he says he just gets off past. She discharged home in stable condition with prescription for Colcrys, medrol dose pack. . Critical care attestation.: If time is entered above; I have spent that time in minutes in the direct care of this critically ill patient, excluding procedure time. ED Disposition Clinical Impression: Acute gouty arthritis Disposition: DC-01 TO HOME OR SELFCARE Is pt being admited?: No Does the pt Need Aspirin: No Condition: Stable Instructions: Acute Gouty Arthritis (ED) Additional Instructions: Following information on low. Diet Take medication as prescribed Follow-up with [facility] in 2-3 days for management of chronic Referrals: PRIMARY CARE, [Primary Care Provider] - 2-3 Days
[2018-05-19] MEDS ORDERED: TORADOL IM ONE (16:07)
== END 2018-05-19 17:27 | disposition home or self-care (01) ==
LOC: ED 15:12
DX: M10.9 Gout, unspecified (principal); I10 Essential (primary) hypertension; G89.29 Other chronic pain; M54.9 Dorsalgia, unspecified; Z87.891 Personal history of nicotine dependence
CPT/HCPCS: 96372; 99282; J1100; J1885

== ENCOUNTER 2018-09-15 10:37 | Emergency (ER) | payer MEDICARE ==
[2018-09-15 10:48] VITALS: BP 175/77
[2018-09-15] MEDS ORDERED: IBUPROFEN PO ONE (11:50)
[2018-09-15] MEDS ORDERED: DECADRON IM ONE (11:50)
--- NOTE | 2018-09-15 11:54 | Emergency Department Report ---
ED Extremity Problem HPI - General Chief complaint: Extremity Problem,Nontraumatic Stated complaint: GOUT Time Seen by Provider: 09/15/18 11:42 Source: patient Mode of arrival: Ambulatory Limitations: No Limitations - History of Present Illness Initial comments: Patient is 77 years old male with history of hypertension and gout. Patient had multiple visits to the emergency room for the same problem. Patient presented this time with left wrist pain and left shoulder pain for the last 3 days. Patient stated that this is typical for his gout attacks. Patient stated that he ate red meat 3 days ago. Patient denied any fever, chills, nausea or vomiting. MD Complaint: extremity pain, joint paint - Related Data Previous Rx's Medication Instructions Recorded Last Taken Type Colchicine 0.6 mg PO DAILY #10 capsule 06/30/18 Unknown Rx predniSONE [Deltasone] 20 mg PO DAILY #5 tablet 06/30/18 Unknown Rx Colchicine 0.6 mg PO DAILY #10 capsule 08/13/18 Unknown Rx Ibuprofen [Motrin] 600 mg PO Q8H PRN #20 tablet 08/13/18 Unknown Rx Prednisone [predniSONE 10 mg 10 mg PO .TAPER #1 tab.ds.pk 08/13/18 Unknown Rx (6-Day Pack, 21 Tabs)] Allergies Allergy/AdvReac Type Severity Reaction Status Date / Time Penicillins Allergy Rash Verified 08/13/18 11:03 ED Review of Systems ROS: Stated complaint: GOUT Other details as noted in HPI Comment: All other systems reviewed and negative Constitutional: denies: chills, fever Respiratory: denies: cough, orthopnea, shortness of breath, SOB with exertion, SOB at rest, wheezing Cardiovascular: denies: chest pain, palpitations Gastrointestinal: denies: abdominal pain, nausea, vomiting, diarrhea, constipation, hematemesis Musculoskeletal: joint swelling, arthralgia Skin: denies: rash Neurological: denies: as per HPI, headache, weakness, paresthesias, confusion ED Past Medical Hx - Past Medical History Hx Hypertension: Yes Hx Arthritis: Yes (GOUT) Additional medical history: Chronic back pain. Gout - Surgical History Past Surgical History?: No - Social History Smoking Status: Unknown if ever smoked Substance Use Type: None - Medications Home Medications: Home Medications Medication Instructions Recorded Confirmed Last Taken Type Colchicine 0.6 mg PO DAILY #10 capsule 06/30/18 Unknown Rx predniSONE [Deltasone] 20 mg PO DAILY #5 tablet 06/30/18 Unknown Rx Colchicine 0.6 mg PO DAILY #10 capsule 08/13/18 Unknown Rx Ibuprofen [Motrin] 600 mg PO Q8H PRN #20 tablet 08/13/18 Unknown Rx Prednisone [predniSONE 10 mg 10 mg PO .TAPER #1 tab.ds.pk 08/13/18 Unknown Rx (6-Day Pack, 21 Tabs)] ED Physical Exam - General Limitations: No Limitations General appearance: alert, in no apparent distress - Head Head exam: Present: atraumatic, normocephalic, normal inspection - Eye Eye exam: Present: normal appearance, PERRL - ENT ENT exam: Present: normal exam, normal orophraynx, mucous membranes moist - Neck Neck exam: Present: normal inspection, full ROM. Absent: tenderness, meningismus, lymphadenopathy, thyromegaly - Respiratory Respiratory exam: Present: normal lung sounds bilaterally. Absent: respiratory distress, wheezes, rales, rhonchi, stridor, chest wall tenderness, accessory muscle use, decreased breath sounds, prolonged expiratory - Cardiovascular Cardiovascular Exam: Present: regular rate, normal rhythm, normal heart sounds - GI/Abdominal GI/Abdominal exam: Present: soft, normal bowel sounds. Absent: distended, tenderness, guarding, rebound, rigid, organomegaly, mass, bruit, pulsatile mass, hernia - Extremities Exam Extremities exam: Present: normal inspection, full ROM, normal capillary refill. Absent: tenderness, pedal edema, joint swelling, calf tenderness - Back Exam Back exam: Present: normal inspection, full ROM. Absent: tenderness, CVA tenderness (R), CVA tenderness (L), muscle spasm, paraspinal tenderness, vertebral tenderness - Neurological Exam Neurological exam: Present: alert, oriented X3, CN II-XII intact, normal gait - Skin Skin exam: Present: warm, intact, normal color ED Course Vital Signs 09/15/18 10:45 Temperature 97.5 F L Pulse Rate 87 Respiratory 18 Rate Blood Pressure 175/77 O2 Sat by Pulse 100 Oximetry Critical care attestation.: If time is entered above; I have spent that time in minutes in the direct care of this critically ill patient, excluding procedure time. ED Disposition Clinical Impression: Acute gout, Left wrist pain, Shoulder pain, left Disposition: - TO HOME OR SELFCARE Is pt being admited?: No Condition: Stable Instructions: Acute Gouty Arthritis (ED) Referrals: PRIMARY CARE, [Referring] - 3-5 Days
== END 2018-09-15 12:18 | disposition home or self-care (01) ==
LOC: ED 10:37
DX: M10.9 Gout, unspecified (principal); M25.532 Pain in left wrist; M25.512 Pain in left shoulder; I10 Essential (primary) hypertension; G89.29 Other chronic pain; Z88.0 Allergy status to penicillin
CPT/HCPCS: 96372; 99282; J1100

== ENCOUNTER 2018-10-09 11:11 | Emergency (ER) | payer MEDICARE ==
[2018-10-09 12:25] VITALS: BP 156/81
--- NOTE | 2018-10-09 14:16 | Emergency Department Report ---
HPI - General Chief Complaint: Extremity Injury, Upper Time Seen by Provider: 10/09/18 14:01 - HPI HPI: 77-year-old male presents to the emergency department with complaint of a 5 day history of right hand pain and swelling. He now says that the left hand has started to swell in the same area, around the knuckle underneath the index finger. The patient says that he has history of gout and this is consistent with previous gout exacerbations. He tried some Tylenol for his symptoms without any relief. States the gout, the patient also has a history of arthritis and hypertension. He follows with Dr. Santillan of [facility] but was unable to get an appointment today. He is right-hand dominant. He denies any fever. ED Past Medical Hx - Past Medical History Previous Medical History?: Yes Hx Hypertension: Yes Hx Arthritis: Yes (GOUT) Additional medical history: Chronic back pain. Gout - Surgical History Past Surgical History?: No - Social History Smoking Status: Never Smoker Substance Use Type: None - Medications Home Medications: Home Medications Medication Instructions Recorded Confirmed Last Taken Type RX: Colchicine 0.6 mg PO DAILY #10 capsule 06/30/18 Unknown Rx Ibuprofen [Motrin] 600 mg PO Q8H PRN #20 tablet 08/13/18 Unknown Rx Prednisone [predniSONE 10 mg 10 mg PO .TAPER #1 tab.ds.pk 08/13/18 Unknown Rx (6-Day Pack, 21 Tabs)] RX: Colchicine 0.6 mg PO DAILY #10 capsule 08/13/18 Unknown Rx Ondansetron [Zofran Odt] 4 mg PO Q8HR PRN #14 tab.rapdis 09/15/18 Unknown Rx RX: Prednisone [predniSONE 10 mg 10 mg PO .TAPER #1 tab.ds.pk 09/15/18 Unknown Rx (6-Day Pack, 21 Tabs)] RX: Triamterene [Dyrenium] 37.5 mg PO BID #60 capsule 09/15/18 Unknown Rx RX: Triamterene [Dyrenium] 37.5 mg PO BID #60 capsule 09/15/18 Unknown Rx traMADol [Ultram] 50 mg PO Q6HR PRN #14 tablet 09/15/18 Unknown Rx RX: predniSONE [Deltasone] 20 mg PO BID #10 tablet 10/09/18 Unknown Rx Sulfamethoxazole/Trimethoprim 1 each PO BID #10 tablet 10/09/18 Unknown Rx [Bactrim DS TAB] ED Review of Systems ROS: Stated complaint: BOTH HAND SWOLLEN Other details as noted in HPI Comment: All other systems reviewed and negative Constitutional: denies: chills, fever Eyes: denies: eye pain, vision change ENT: denies: ear pain, throat pain Respiratory: denies: cough, shortness of breath Cardiovascular: denies: chest pain, palpitations Gastrointestinal: denies: abdominal pain, vomiting Genitourinary: denies: dysuria, discharge Musculoskeletal: joint swelling, arthralgia Skin: denies: rash, lesions Neurological: denies: headache, weakness Physical Exam - Physical Exam Vital Signs: Vital Signs 10/09/18 12:24 Temperature 97.8 F Pulse Rate 97 H Respiratory 18 Rate Blood Pressure 156/81 O2 Sat by Pulse 97 Oximetry Physical Exam: GENERAL: The patient is well-developed well-nourished. HEENT: Normocephalic. Atraumatic. Patient has moist mucous membranes. EYES: Extraocular motions are intact. NECK: Supple. Trachea is midline. CHEST/LUNGS: Clear to auscultation. There is no respiratory distress noted. HEART/CARDIOVASCULAR: Regular. There is no tachycardia. There is no obvious murmur. ABDOMEN: Abdomen is soft, nontender. Patient has normal bowel sounds. There is no abdominal distention. SKIN: There is nonpitting swelling of the dorsal right hand and right index finger. There is some very mild nonpitting swelling at the left second metacarpophalangeal joint. NEURO: The patient is awake, alert, and oriented. The patient is cooperative. The patient has no focal neurologic deficits. The patient has normal speech. MUSCULOSKELETAL: There is some tenderness to palpation of the right second metacarpophalangeal joint. Capillary refill less than 2 seconds and radial pulse +2 over 4 to the affected right hand and wrist. ED Course Vital Signs 10/09/18 12:24 Temperature 97.8 F Pulse Rate 97 H Respiratory 18 Rate Blood Pressure 156/81 O2 Sat by Pulse 97 Oximetry ED Medical Decision Making - Lab Data Result diagrams: 10/09/18 14:56 10/09/18 14:56 - Radiology Data Radiology results: report reviewed - Medical Decision Making Patient presents with a few days of pain and swelling to the right hand, worst at the second carpal phalangeal joint, and now it is started on the left hand as well. He has a history of gout and says that it has occurred in these locations multiple times in the past. Vital signs stable including being afebrile. An x- ray was done that does not show any fracture or dislocation but was read by radiology as showing some degenerative changes and signs of a condition similar to gout. Labs are unremarkable including no leukocytosis. No significant elevation the uric acid level. Patient will be treated with both steroids for gout, as well as antibiotics in case he is developing any infection. Patient will follow up with primary care physician but has also been given a referral for Dr. Royal, orthopedist. The patient is aware of his mild renal insufficiency and will continue to avoid any NSAID use. He will return to the emergency department immediately with any worsening of the pain or swelling of his hand and fingers - Differential Diagnosis gout, cellulitis, abscess, tenosynovitis Critical Care Time: No Critical care attestation.: If time is entered above; I have spent that time in minutes in the direct care of this critically ill patient, excluding procedure time. ED Disposition Clinical Impression: Right hand pain Gout Qualifiers: Gout site: hand Gout etiology: unspecified cause Chronicity: unspecified Laterality: right Qualified Code(s): M10.9 - Gout, unspecified Disposition: TO HOME OR SELFCARE Is pt being admited?: No Condition: Stable Instructions: Cellulitis (ED), Acute Gouty Arthritis (ED) Additional Instructions: Please follow-up with your primary care physician in the next few days. Return to the emergency Department with any worsening of your symptoms or any acute distress. Prescriptions: RX: predniSONE [Deltasone] 20 mg PO BID #10 tablet Sulfamethoxazole/Trimethoprim [Bactrim DS TAB] 1 each PO BID #10 tablet Referrals: [facility] [Outside] - MICHELLE ALBRECHT MD [Staff Physician] - KATJA Time of Disposition: 15:51
--- NOTE | 2018-10-09 14:59 | XRay Report ---
RIGHT HAND, 3 views: History: Right hand pain and swelling. Findings: Compared to 11/22/10. There is mild osteopenia. There are diffuse arthritic changes throughout the wrist and fingers. An advanced arthritis is suspected. A marginal bony erosion with an overhanging edge is identified in the distal first metacarpal. This suggests gout. The interphalangeal joints demonstrate advanced diffuse narrowing with mild erosive changes. This could be related to gout or erosive osteoarthritis. There has been mild progression of disease since 2010. No evidence for fracture, dislocation or suspicious bony lesion. IMPRESSION: An advanced arthritis is identified as outlined above. Gout? Erosive osteoarthritis?
[2018-10-09 15:31] LABS: Basophils % (Auto) 0.4 % (0.0-1.8); Eosinophils # (Auto) 0.1 K/mm3 (0.0-0.4); Eosinophils % (Auto) 1.4 % (0.0-4.3); Hematocrit 38.1 % (35.5-45.6); Hemoglobin 12.4 gm/dl (11.8-15.2); Lymphocytes # (Auto) 1.4 K/mm3 (1.2-5.4); Lymphocytes % (Auto) 21.1 % (13.4-35.0); Mean Corpuscular HGB Conc 33 % (32-34); Mean Corpuscular Volume 81 fl (84-94); Monocytes # (Auto) 0.4 K/mm3 (0.0-0.8); Monocytes % (Auto) 5.8 % (0.0-7.3); Platelet Count 186 K/mm3 (140-440); Red Blood Count 4.68 M/mm3 (3.65-5.03); Red Cell Distribution Width 17.6 % (13.2-15.2)
[2018-10-09 15:33] LABS: Calcium 9.7 mg/dL (8.4-10.2); Uric Acid 5.2 mg/dL (3.5-7.6)
== END 2018-10-09 15:59 | disposition home or self-care (01) ==
LOC: ED 11:11
DX: M10.041 Idiopathic gout, right hand (principal); I10 Essential (primary) hypertension; M54.9 Dorsalgia, unspecified; G89.29 Other chronic pain; Z88.0 Allergy status to penicillin
CPT/HCPCS: 36415; 80048; 84550; 85025; 99283

== ENCOUNTER 2018-11-15 12:16 | Emergency (ER) | payer MEDICARE ==
[2018-11-15 12:41] VITALS: BP 155/56
--- NOTE | 2018-11-15 12:55 | Emergency Department Report ---
Blank Doc - Documentation Documentation: reports gout flare up after eating tamazight food. started 3 days ago and having pain in rt wrist and hand. report redness and pain 9/10 and aching. Took tylenol and allopurinol. No alcohol use. Has PCP O- Rt wrist and hansd pain and redness on radial side . TTP. mild swelling. Radial ulnar pulses palpable Clubbing to nailbeds A/P Arthralgia RT wrist/Hand- h/o gout Plan Patient medically screened and stable. Svcreened by medical provider
[2018-11-15] MEDS ORDERED: DELTASONE PO ONE (14:34)
--- NOTE | 2018-11-15 14:37 | Emergency Department Report ---
ED Back Pain/Injury HPI - General Chief Complaint: Extremity Problem,Nontraumatic Stated Complaint: GOUT Time Seen by Provider: 11/15/18 12:55 Source: patient Limitations: No Limitations - History of Present Illness Initial Comments: Mr Mcpherson is a pleasant 77-year-old -[place] male who comes to the ER complaining of a gout flare of his right hand. He is on allopurinol at home. He has no trauma fall or other explanation for the hand pain. He is routinely treated for his gout here in the emergency room. PMH HTN GOUT - Related Data Previous Rx's Medication Instructions Recorded Last Taken Type Triamterene [Dyrenium] 37.5 mg PO BID #60 capsule 09/15/18 Unknown Rx Colchicine [Mitigare] 0.6 mg PO DAILY #11 capsule 11/15/18 Unknown Rx Ibuprofen [Motrin] 600 mg PO Q8H PRN #20 tablet 11/15/18 Unknown Rx Prednisone [predniSONE 10 mg 10 mg PO .TAPER #1 tab.ds.pk 11/15/18 Unknown Rx (6-Day Pack, 21 Tabs)] Allergies Allergy/AdvReac Type Severity Reaction Status Date / Time Penicillins Allergy Rash Verified 10/09/18 12:25 ED Review of Systems ROS: Stated complaint: GOUT Other details as noted in HPI Comment: All other systems reviewed and negative Constitutional: denies: chills Eyes: denies: as per HPI ENT: denies: ear pain Respiratory: denies: see HPI Cardiovascular: denies: palpitations Endocrine: denies: flushing Gastrointestinal: denies: nausea Genitourinary: denies: urgency Musculoskeletal: as per HPI. denies: back pain Skin: denies: rash Neurological: denies: weakness Psychiatric: denies: anxiety Hematological/Lymphatic: denies: easy bleeding ED Past Medical Hx - Past Medical History Medical history: arthritis, hypertension Chronic back pain. Gout Surgical history: no surgical history Family history: no significant family history - Social History Alcohol use: none Drug use: none ED Back Pain Physical Exam - Exam General: Vital signs noted. No distress. Alert and acting appropriately. R HAND PROX THUMB RED FULL ROM TENDER TO TOUCH RADIAL AND ULNAR PULSE INTACT RAPID CAP REFILL NO SNUFF BOX TENDERNESS- NO TRAUMA Back/Abdomen: No Abdominal Tenderness, No Perithoracic Tenderness, No Perilumbar Tenderness, No Sacroiliac Tenderness, No Flank Tenderness, No Straight Leg Raise Pain Neuro: Yes Normal Sensation, Yes Normal DTR's, Yes Normal Gait, No Motor Weakness ED Course Vital Signs 11/15/18 12:40 Temperature 97.8 F Pulse Rate 71 Respiratory 16 Rate Blood Pressure 155/56 O2 Sat by Pulse 98 Oximetry ED Medical Decision Making - Medical Decision Making SIMPLE GOUT FLARE A/C ISSUE NO TRAUMA NEUROVASC INTACT DC HOME WITH PCP FOLLOW UP Critical care attestation.: If time is entered above; I have spent that time in minutes in the direct care of this critically ill patient, excluding procedure time. ED Disposition Clinical Impression: Gout attack, Acute gouty arthritis Disposition: DC-01 TO HOME OR SELFCARE Is pt being admited?: No Does the pt Need Aspirin: No Condition: Stable Instructions: Acute Gouty Arthritis (ED) Additional Instructions: DIET TOLERATED MEDS ORDERED FOLLOW UP PCP ACTIVITY TOLERATED Prescriptions: Colchicine [Mitigare] 0.6 mg PO DAILY #11 capsule Ibuprofen [Motrin] 600 mg PO Q8H PRN #20 tablet PRN Reason: Pain Prednisone [predniSONE 10 mg (6-Day Pack, 21 Tabs)] 10 mg PO .TAPER #1 tab.ds.pk Referrals: [facility] [Outside] - 3-5 Days Time of Disposition: 14:35
== END 2018-11-15 15:08 | disposition home or self-care (01) ==
LOC: ED 12:16
DX: M10.9 Gout, unspecified (principal); G89.29 Other chronic pain; Z88.0 Allergy status to penicillin
CPT/HCPCS: 99282; J7512

== ENCOUNTER 2018-12-03 05:52 | Emergency (ER) | payer MEDICARE ==
[2018-12-03 06:00] VITALS: BP 143/67
--- NOTE | 2018-12-03 08:28 | Emergency Department Report ---
HPI - General Chief Complaint: Extremity Injury, Upper Time Seen by Provider: 12/03/18 08:23 - HPI HPI: 78-year-old -[place] male presents to the emergency Department with some pain and swelling to his hands, right greater than left, that he believes is a gout flare. He does have a history of this gouty arthritis and has had multiple visits to this facility for this issue. His primary care physician is Dr. Bernie Santillan at [facility] but he says he has difficult times getting appointment. He also admits that his diet is not conducive to gout and he needs to "watch more." He has not taken anything for her symptoms prior to presentation. ED Past Medical Hx - Past Medical History Previous Medical History?: Yes Hx Hypertension: Yes Hx Arthritis: Yes (GOUT) Additional medical history: Chronic back pain. Gout - Surgical History Past Surgical History?: No - Social History Smoking Status: Former Smoker Substance Use Type: None - Medications Home Medications: Home Medications Medication Instructions Recorded Confirmed Last Taken Type Triamterene [Dyrenium] 37.5 mg PO BID #60 capsule 09/15/18 Unknown Rx Colchicine [Mitigare] 0.6 mg PO DAILY #11 capsule 11/15/18 Unknown Rx Ibuprofen [Motrin] 600 mg PO Q8H PRN #20 tablet 11/15/18 Unknown Rx Prednisone [predniSONE 10 mg 10 mg PO .TAPER #1 tab.ds.pk 12/03/18 Unknown Rx (6-Day Pack, 21 Tabs)] ED Review of Systems ROS: Stated complaint: GOUT BOTH HANDS Other details as noted in HPI Comment: All other systems reviewed and negative Constitutional: denies: chills, fever Eyes: denies: eye pain, vision change ENT: denies: ear pain, throat pain Respiratory: denies: cough, shortness of breath Cardiovascular: denies: chest pain, palpitations Gastrointestinal: denies: abdominal pain, vomiting Genitourinary: denies: dysuria, discharge Musculoskeletal: joint swelling, arthralgia Skin: denies: rash, lesions Neurological: denies: headache, weakness Physical Exam - Physical Exam Vital Signs: Vital Signs 12/03/18 05:53 Temperature 97.6 F Pulse Rate 59 L Respiratory 18 Rate Blood Pressure 143/67 O2 Sat by Pulse 100 Oximetry Physical Exam: GENERAL: The patient is well-developed well-nourished. HEENT: Normocephalic. Atraumatic. Patient has moist mucous membranes. EYES: Extraocular motions are intact. NECK: Supple. Trachea is midline. CHEST/LUNGS: Clear to auscultation. There is no respiratory distress noted. HEART/CARDIOVASCULAR: Regular. There is no tachycardia. There is no obvious murmur. ABDOMEN: Abdomen is soft, nontender. Patient has normal bowel sounds. There is no abdominal distention. SKIN: There is some mild nonpitting swelling to the bilateral hands, right greater than left, worse around the knuckles. No erythema, fluctuance. NEURO: The patient is awake, alert, and oriented. The patient is cooperative. The patient has no focal neurologic deficits. The patient has normal speech. MUSCULOSKELETAL: There is no tenderness or deformity. There is no evidence of acute injury. Radial pulse +2 over 4 and capillary refill less than 2 seconds to the bilateral hands and wrists. ED Course Vital Signs 12/03/18 05:53 Temperature 97.6 F Pulse Rate 59 L Respiratory 18 Rate Blood Pressure 143/67 O2 Sat by Pulse 100 Oximetry ED Medical Decision Making - Lab Data Result diagrams: 12/03/18 08:37 - Medical Decision Making This patient has a known history of gouty arthritis and has been here multiple times for flareups involving his hands. The last 2 times the patient was here, he was placed on indomethacin and colchicine and sometimes steroids. He does have some history of chronic kidney disease so I rechecked his metabolic panel which shows a creatinine of 1.7 and GFR of about 45. This is worse than the last time he was here and therefore I do not plan to treat him with the typical NSAIDs. He'll be placed on a Medrol Dosepak. He says he has a primary care and gear roller for follow-up. Vital signs stable. He will return to the ER with any worsening of his symptoms or any acute distress. - Differential Diagnosis gout, cellulitis, rheumatoid arthritis, osteoarthritis Critical Care Time: No Critical care attestation.: If time is entered above; I have spent that time in minutes in the direct care of this critically ill patient, excluding procedure time. ED Disposition Clinical Impression: Renal insufficiency, Gouty arthritis Disposition: - TO HOME OR SELFCARE Is pt being admited?: No Condition: Stable Instructions: Acute Gouty Arthritis (ED), Impaired Kidney Function (ED) Additional Instructions: Please follow-up with your primary care physician in the next few days. I am also giving you a referral for a local gear roller/kidney doctor, Dr. peraza, to follow up regarding your impaired kidney function. Please avoid any NSAID use, which includes Aleve, ibuprofen, naproxen, Advil, Motrin, among other brands. Return to the emergency Department with any worsening of your symptoms or any acute distress. Prescriptions: Prednisone [predniSONE 10 mg (6-Day Pack, 21 Tabs)] 10 mg PO .TAPER #1 tab.ds.pk Referrals: BERNIE SANTILLAN MD [Referring] - 2-3 Days ALAINA VEGA MD [Staff Physician] - 2-3 Days Time of Disposition: 09:43
[2018-12-03 09:37] LABS: Calcium 9.3 mg/dL (8.4-10.2)
== END 2018-12-03 09:53 | disposition home or self-care (01) ==
LOC: ED 05:52
DX: N28.9 Disorder of kidney and ureter, unspecified (principal); M10.9 Gout, unspecified; I10 Essential (primary) hypertension; G89.29 Other chronic pain; M54.9 Dorsalgia, unspecified; Z87.891 Personal history of nicotine dependence; Z88.0 Allergy status to penicillin
CPT/HCPCS: 36415; 80048; 99283

== ENCOUNTER 2019-01-08 14:14 | Emergency (ER) | payer MEDICARE ==
[2019-01-08 14:38] VITALS: BP 162/66
--- NOTE | 2019-01-08 14:39 | Emergency Department Report ---
Blank Doc - Documentation Documentation: 78 y o male presents with left hand gouty arthritis flare up after taking hctz x some days swelling and redness to left hand [facility] eval
[2019-01-08] MEDS ORDERED: TORADOL IM ONE (16:01)
--- NOTE | 2019-01-08 16:06 | Emergency Department Report ---
ED General Adult HPI - General Chief complaint: Pain General Stated complaint: (L) HAND SWELLING/GOUT PAIN Time Seen by Provider: 01/08/19 14:36 Source: patient Mode of arrival: Ambulatory Limitations: No Limitations - History of Present Illness Initial comments: Patient is 78 years old male with history of gout. Patient presented to the ER complaining of left hand pain and swelling for the last 2-3 days. Patient denied any injury. No fever or chills. Patient stated that he just found that the hydrochlorothiazide that he been taking for his blood pressures is causing his gout flare-up. - Related Data Previous Rx's Medication Instructions Recorded Last Taken Type Triamterene [Dyrenium] 37.5 mg PO BID #60 capsule 09/15/18 Unknown Rx Colchicine [Mitigare] 0.6 mg PO DAILY #11 capsule 11/15/18 Unknown Rx Ibuprofen [Motrin] 600 mg PO Q8H PRN #20 tablet 11/15/18 Unknown Rx Prednisone [predniSONE 10 mg 10 mg PO .TAPER #1 tab.ds.pk 12/03/18 Unknown Rx (6-Day Pack, 21 Tabs)] Allergies Allergy/AdvReac Type Severity Reaction Status Date / Time Penicillins Allergy Rash Verified 01/08/19 14:38 ED Review of Systems ROS: Stated complaint: (L) HAND SWELLING/GOUT PAIN Other details as noted in HPI Comment: All other systems reviewed and negative ENT: denies: throat pain Cardiovascular: denies: chest pain, palpitations Gastrointestinal: denies: abdominal pain, nausea, vomiting Neurological: denies: headache, weakness, numbness, paresthesias, confusion, abnormal gait ED Past Medical Hx - Past Medical History Previous Medical History?: Yes Hx Hypertension: Yes Hx Arthritis: Yes (GOUT) Additional medical history: Chronic back pain. Gout - Surgical History Past Surgical History?: No - Social History Smoking Status: Former Smoker Substance Use Type: None - Medications Home Medications: Home Medications Medication Instructions Recorded Confirmed Last Taken Type Triamterene [Dyrenium] 37.5 mg PO BID #60 capsule 09/15/18 Unknown Rx Colchicine [Mitigare] 0.6 mg PO DAILY #11 capsule 11/15/18 Unknown Rx Ibuprofen [Motrin] 600 mg PO Q8H PRN #20 tablet 11/15/18 Unknown Rx Prednisone [predniSONE 10 mg 10 mg PO .TAPER #1 tab.ds.pk 12/03/18 Unknown Rx (6-Day Pack, 21 Tabs)] ED Physical Exam - General Limitations: No Limitations General appearance: alert, in no apparent distress - Head Head exam: Present: atraumatic, normocephalic, normal inspection - Eye Eye exam: Present: normal appearance - ENT ENT exam: Present: normal exam, normal orophraynx, mucous membranes moist - Neck Neck exam: Present: normal inspection, full ROM. Absent: tenderness, meningismus, lymphadenopathy, thyromegaly - Respiratory Respiratory exam: Present: normal lung sounds bilaterally - Cardiovascular Cardiovascular Exam: Present: regular rate, normal rhythm, normal heart sounds - GI/Abdominal GI/Abdominal exam: Present: soft. Absent: distended, tenderness, guarding - Expanded Upper Extremity Exam Left Hand Wrist exam: Present: tenderness, swelling. Absent: abrasion, laceration, ecchymosis, deformity, crepidus, dislocation, erythema - Back Exam Back exam: Present: normal inspection, full ROM ED Course Vital Signs 01/08/19 14:36 Temperature 98.1 F Pulse Rate 87 Respiratory 20 Rate Blood Pressure 162/66 O2 Sat by Pulse 98 Oximetry Critical care attestation.: If time is entered above; I have spent that time in minutes in the direct care of this critically ill patient, excluding procedure time. ED Disposition Clinical Impression: Acute gout, Left hand pain Disposition: -01 TO HOME OR SELFCARE Is pt being admited?: No Condition: Stable Instructions: Acute Gouty Arthritis (ED) Referrals: RAGHU MARMOLEJO [Other] - 3-5 Days
== END 2019-01-08 16:33 | disposition home or self-care (01) ==
LOC: ED 14:14
DX: M10.042 Idiopathic gout, left hand (principal); I10 Essential (primary) hypertension; G89.29 Other chronic pain; M54.9 Dorsalgia, unspecified; Z87.891 Personal history of nicotine dependence; Z88.0 Allergy status to penicillin
CPT/HCPCS: 96372; 99282; J1885

== ENCOUNTER 2019-03-16 12:51 | Emergency (ER) | payer MEDICARE ==
--- NOTE | 2019-03-16 13:17 | Emergency Department Report ---
Blank Doc - Documentation Documentation: This is a 78-year-old male that presents with bilateral feet pain and hand glenis ns. Patient also wants to get a test for kidneys. Denies any kidney problems or complaints. Stated he just wants it to be checked. This initial assessment/diagnostic orders/clinical plan/treatment(s) is/are subject to change based on patient's health status, clinical progression and re- assessment by fellow clinical providers in the ED. Further treatment and workup at subsequent clinical providers discretion. Patient/guardians urged not to elope from the ED as their condition may be serious if not clinically assessed and managed. Initial orders include: 1- Patient sent to [facility] for further evaluation and treatment
[2019-03-16 13:18] VITALS: BP 169/68
[2019-03-16] MEDS ORDERED: DELTASONE PO ONE (14:11)
[2019-03-16 14:53] LABS: Calcium 9.7 mg/dL (8.4-10.2)
--- NOTE | 2019-03-16 15:12 | Emergency Department Report ---
ED Extremity Problem HPI - General Chief complaint: Pain General Stated complaint: BOTH HANDS/ANKLES PAIN/GOUT/POSS KIDNEY ISSUE Time Seen by Provider: 03/16/19 13:13 Source: patient Mode of arrival: Ambulatory Limitations: No Limitations - History of Present Illness Initial comments: Mr. Mcpherson is a 78-year-old male who presents with chronic joint pain which he attributes to gout. He normally takes steroids for the gout flares. He also desires a blood test to follow his kidney function. He states that he comes to the emergency department because he is only allowed to see his PCP every 90 days. He has mild pain. Mild pain in the knees and ankles. He denies any symptoms otherwise. MD Complaint: extremity pain, extremity swelling -: Gradual Location: left, right, lower extremity -: Yes arthralgia Consistency: constant Worsens with: weight bearing - Related Data Previous Rx's Medication Instructions Recorded Last Taken Type Triamterene [Dyrenium] 37.5 mg PO BID #60 capsule 09/15/18 Unknown Rx Colchicine [Mitigare] 0.6 mg PO DAILY #11 capsule 11/15/18 Unknown Rx Ibuprofen [Motrin] 600 mg PO Q8H PRN #20 tablet 11/15/18 Unknown Rx Prednisone [predniSONE 10 mg 10 mg PO .TAPER #1 tab.ds.pk 12/03/18 Unknown Rx (6-Day Pack, 21 Tabs)] Ondansetron [Zofran Odt] 4 mg PO Q8HR PRN #14 tab.rapdis 01/08/19 Unknown Rx Prednisone [predniSONE 10 mg 10 mg PO .TAPER #1 tab.ds.pk 01/08/19 Unknown Rx (6-Day Pack, 21 Tabs)] traMADol [Ultram 50 MG tab] 50 mg PO Q4HR PRN #14 tablet 01/08/19 Unknown Rx Prednisone [predniSONE 5 mg (6-Day 5 mg PO .TAPER #1 tab.ds.pk 03/16/19 Unknown Rx Pack, 21 Tabs)] Allergies Allergy/AdvReac Type Severity Reaction Status Date / Time Penicillins Allergy Rash Verified 03/16/19 12:57 ED Review of Systems ROS: Stated complaint: BOTH HANDS/ANKLES PAIN/GOUT/POSS KIDNEY ISSUE Other details as noted in HPI Comment: All other systems reviewed and negative Constitutional: denies: fever, malaise Cardiovascular: denies: chest pain ED Past Medical Hx - Past Medical History Previous Medical History?: Yes Hx Hypertension: Yes Hx Arthritis: Yes (GOUT) Additional medical history: Chronic back pain. Gout - Social History Smoking Status: Former Smoker Substance Use Type: None - Medications Home Medications: Home Medications Medication Instructions Recorded Confirmed Last Taken Type Triamterene [Dyrenium] 37.5 mg PO BID #60 capsule 09/15/18 Unknown Rx Colchicine [Mitigare] 0.6 mg PO DAILY #11 capsule 11/15/18 Unknown Rx Ibuprofen [Motrin] 600 mg PO Q8H PRN #20 tablet 11/15/18 Unknown Rx Prednisone [predniSONE 10 mg 10 mg PO .TAPER #1 tab.ds.pk 12/03/18 Unknown Rx (6-Day Pack, 21 Tabs)] Ondansetron [Zofran Odt] 4 mg PO Q8HR PRN #14 tab.rapdis 01/08/19 Unknown Rx Prednisone [predniSONE 10 mg 10 mg PO .TAPER #1 tab.ds.pk 01/08/19 Unknown Rx (6-Day Pack, 21 Tabs)] traMADol [Ultram 50 MG tab] 50 mg PO Q4HR PRN #14 tablet 01/08/19 Unknown Rx Prednisone [predniSONE 5 mg (6-Day 5 mg PO .TAPER #1 tab.ds.pk 03/16/19 Unknown Rx Pack, 21 Tabs)] ED Physical Exam - General Limitations: No Limitations General appearance: alert, in no apparent distress - Head Head exam: Present: atraumatic, normocephalic - Eye Eye exam: Present: normal appearance - ENT ENT exam: Present: mucous membranes moist - Neck Neck exam: Present: normal inspection, full ROM - Respiratory Respiratory exam: Present: normal lung sounds bilaterally. Absent: respiratory distress, wheezes, rhonchi, stridor - Cardiovascular Cardiovascular Exam: Present: regular rate, normal rhythm - GI/Abdominal GI/Abdominal exam: Present: soft, normal bowel sounds. Absent: distended, tenderness, guarding, rebound - Rectal Rectal exam: Present: deferred - Extremities Exam Extremities exam: Present: full ROM, other (bilateral knee swelling no erythema no warmth). Absent: tenderness - Back Exam Back exam: Present: normal inspection - Neurological Exam Neurological exam: Present: alert, oriented X3 - Psychiatric Psychiatric exam: Present: normal affect, normal mood - Skin Skin exam: Present: warm, dry, intact, normal color. Absent: rash ED Course Vital Signs 03/16/19 13:13 Temperature 98.0 F Pulse Rate 76 Respiratory 20 Rate Blood Pressure 169/68 O2 Sat by Pulse 99 Oximetry ED Medical Decision Making - Lab Data Result diagrams: 03/16/19 14:19 - Medical Decision Making Gout exacerbation, prescribed prednisone taper, renal function at baseline with baseline GFR 47 baseline creatinine 1.7 unchanged Critical care attestation.: If time is entered above; I have spent that time in minutes in the direct care of this critically ill patient, excluding procedure time. ED Disposition Clinical Impression: Osteoarthritis, knee, Gout, Chronic kidney disease Disposition: - TO HOME OR SELFCARE Is pt being admited?: No Does the pt Need Aspirin: No Condition: Stable Instructions: Acute Gouty Arthritis (ED) Prescriptions: Prednisone [predniSONE 5 mg (6-Day Pack, 21 Tabs)] 5 mg PO .TAPER #1 tab.ds.pk
== END 2019-03-16 15:14 | disposition home or self-care (01) ==
LOC: ED 12:51
DX: M17.0 Bilateral primary osteoarthritis of knee (principal); I12.9 Hypertensive chronic kidney disease with stage 1 through stage 4 chronic kidney disease, or unspecified chronic kidney disease; N18.9 Chronic kidney disease, unspecified; M10.062 Idiopathic gout, left knee; M10.061 Idiopathic gout, right knee; G89.29 Other chronic pain; M54.9 Dorsalgia, unspecified; Z87.891 Personal history of nicotine dependence; Z88.0 Allergy status to penicillin; Z79.899 Other long term (current) drug therapy
CPT/HCPCS: 36415; 80048; 99283; J7512

== ENCOUNTER 2019-04-07 10:02 | Emergency (ER) | payer MEDICARE ==
[2019-04-07 10:11] VITALS: BP 158/65
--- NOTE | 2019-04-07 10:44 | Emergency Department Report ---
ED General Adult HPI - General Chief complaint: Pain General Stated complaint: GOUT FLARE UP Time Seen by Provider: 04/07/19 10:37 Source: patient Mode of arrival: Ambulatory Limitations: No Limitations - History of Present Illness Initial comments: Mr. Mcpherson is a 78 years old male with history of gout. Patient presented to the ER complaining of bilateral hand pain and swelling. Patient stated that this is typical for his gouty arthritis. Patient stated that he ate some pork 2 days ago. Patient denied any fever or chills. Patient stated that redness on usual work well for him. - Related Data Previous Rx's Medication Instructions Recorded Last Taken Type Triamterene [Dyrenium] 37.5 mg PO BID #60 capsule 09/15/18 Unknown Rx Colchicine [Mitigare] 0.6 mg PO DAILY #11 capsule 11/15/18 Unknown Rx Ibuprofen [Motrin] 600 mg PO Q8H PRN #20 tablet 11/15/18 Unknown Rx Prednisone [predniSONE 10 mg 10 mg PO .TAPER #1 tab.ds.pk 12/03/18 Unknown Rx (6-Day Pack, 21 Tabs)] Ondansetron [Zofran Odt] 4 mg PO Q8HR PRN #14 tab.rapdis 01/08/19 Unknown Rx Prednisone [predniSONE 10 mg 10 mg PO .TAPER #1 tab.ds.pk 01/08/19 Unknown Rx (6-Day Pack, 21 Tabs)] traMADol [Ultram 50 MG tab] 50 mg PO Q4HR PRN #14 tablet 01/08/19 Unknown Rx Prednisone [predniSONE 5 mg (6-Day 5 mg PO .TAPER #1 tab.ds.pk 03/16/19 Unknown Rx Pack, 21 Tabs)] Allergies Allergy/AdvReac Type Severity Reaction Status Date / Time Penicillins Allergy Rash Verified 03/16/19 12:57 ED Review of Systems ROS: Stated complaint: GOUT FLARE UP Other details as noted in HPI Comment: All other systems reviewed and negative Constitutional: denies: chills, fever Respiratory: denies: cough, shortness of breath, SOB with exertion Cardiovascular: denies: chest pain, palpitations Gastrointestinal: denies: abdominal pain, nausea, vomiting, diarrhea, constipation Genitourinary: denies: urgency Musculoskeletal: joint swelling, arthralgia. denies: back pain ED Past Medical Hx - Past Medical History Previous Medical History?: Yes Hx Hypertension: Yes Hx Arthritis: Yes (GOUT) Additional medical history: Chronic back pain. Gout - Surgical History Past Surgical History?: No - Social History Smoking Status: Former Smoker Substance Use Type: None - Medications Home Medications: Home Medications Medication Instructions Recorded Confirmed Last Taken Type Triamterene [Dyrenium] 37.5 mg PO BID #60 capsule 09/15/18 Unknown Rx Colchicine [Mitigare] 0.6 mg PO DAILY #11 capsule 11/15/18 Unknown Rx Ibuprofen [Motrin] 600 mg PO Q8H PRN #20 tablet 11/15/18 Unknown Rx Prednisone [predniSONE 10 mg 10 mg PO .TAPER #1 tab.ds.pk 12/03/18 Unknown Rx (6-Day Pack, 21 Tabs)] Ondansetron [Zofran Odt] 4 mg PO Q8HR PRN #14 tab.rapdis 01/08/19 Unknown Rx Prednisone [predniSONE 10 mg 10 mg PO .TAPER #1 tab.ds.pk 01/08/19 Unknown Rx (6-Day Pack, 21 Tabs)] traMADol [Ultram 50 MG tab] 50 mg PO Q4HR PRN #14 tablet 01/08/19 Unknown Rx Prednisone [predniSONE 5 mg (6-Day 5 mg PO .TAPER #1 tab.ds.pk 03/16/19 Unknown Rx Pack, 21 Tabs)] ED Physical Exam - General Limitations: No Limitations General appearance: alert, in no apparent distress - Head Head exam: Present: atraumatic, normocephalic, normal inspection - Eye Eye exam: Present: normal appearance, PERRL - ENT ENT exam: Present: normal exam, normal orophraynx, mucous membranes moist - Neck Neck exam: Present: normal inspection, full ROM. Absent: tenderness, meningismus, lymphadenopathy, thyromegaly - Respiratory Respiratory exam: Present: normal lung sounds bilaterally - Cardiovascular Cardiovascular Exam: Present: regular rate, normal rhythm, normal heart sounds - GI/Abdominal GI/Abdominal exam: Present: soft, normal bowel sounds. Absent: distended, tenderness, guarding, rebound, rigid, mass, bruit, pulsatile mass, hernia - Extremities Exam Extremities exam: Present: normal capillary refill, other (bilateral hand swelling and tenderness.) - Back Exam Back exam: Present: normal inspection, full ROM. Absent: CVA tenderness (R), CVA tenderness (L), muscle spasm, paraspinal tenderness, vertebral tenderness ED Course Vital Signs 04/07/19 10:08 Temperature 97.8 F Pulse Rate 71 Respiratory 20 Rate Blood Pressure 158/65 O2 Sat by Pulse 98 Oximetry Critical care attestation.: If time is entered above; I have spent that time in minutes in the direct care of this critically ill patient, excluding procedure time. ED Disposition Clinical Impression: Acute gouty arthritis, Bilateral hand pain, Osteoarthritis, knee Disposition: TO HOME OR SELFCARE Is pt being admited?: No Condition: Stable Instructions: Acute Gouty Arthritis (ED) Referrals: PRIMARY CARE, [Referring] - 3-5 Days
== END 2019-04-07 10:58 | disposition home or self-care (01) ==
LOC: ED 10:02
DX: M10.041 Idiopathic gout, right hand (principal); M10.042 Idiopathic gout, left hand; I10 Essential (primary) hypertension; M54.9 Dorsalgia, unspecified; G89.29 Other chronic pain; Z88.0 Allergy status to penicillin; Z79.1 Long term (current) use of non-steroidal anti-inflammatories (NSAID); Z79.899 Other long term (current) drug therapy
CPT/HCPCS: 99282

== ENCOUNTER 2019-10-01 20:30 | Emergency (ER) | payer MEDICARE ==
--- NOTE | 2019-10-01 22:12 | Emergency Department Report ---
Blank Doc - Documentation Documentation: 78-year-old male that presents with cp and sob. This initial assessment/diagnostic orders/clinical plan/treatment(s) is/are subject to change based on patient's health status, clinical progression and re- assessment by fellow clinical providers in the ED. Further treatment and workup at subsequent clinical providers discretion. Patient/guardians urged not to elope from the ED as their condition may be serious if not clinically assessed and managed. Initial orders include: 1- Patient sent to MAIN ED for further evaluation and treatment 2- cardiac protocol
[2019-10-01 23:20] LABS: Basophils % (Auto) 0.5 % (0.0-1.8); Eosinophils # (Auto) 0.2 K/mm3 (0.0-0.4); Hematocrit 39.6 % (35.5-45.6); Hemoglobin 12.8 gm/dl (11.8-15.2); Lymphocytes # (Auto) 1.6 K/mm3 (1.2-5.4); Lymphocytes % (Auto) 24.7 % (13.4-35.0); Mean Corpuscular HGB Conc 32 % (32-34); Mean Corpuscular Volume 82 fl (84-94); Monocytes # (Auto) 0.5 K/mm3 (0.0-0.8); Monocytes % (Auto) 7.3 % (0.0-7.3); Platelet Count 154 K/mm3 (140-440); Red Blood Count 4.83 M/mm3 (3.65-5.03); Red Cell Distribution Width 16.7 % (13.2-15.2)
--- NOTE | 2019-10-01 23:23 | XRay Report ---
CHEST 2 VIEWS 10/01/2019 10:42 PM INDICATION / CLINICAL INFORMATION: Chest Pain. COMPARISON: 2 views of the chest from 12/04/2015. FINDINGS: SUPPORT DEVICES: None. HEART / MEDIASTINUM: No significant abnormality. LUNGS / PLEURA: No significant pulmonary or pleural abnormality. No pneumothorax. ADDITIONAL FINDINGS: No significant additional findings. IMPRESSION: 1. No acute abnormality of the chest. Signer Name: Rahul Casanova MD Signed: 10/01/2019 11:19 PM Workstation Name: [id number]
[2019-10-01 23:31] LABS: INR 0.97 (0.87-1.13)
[2019-10-01 23:32] LABS: Partial Thromboplastin Time 34.1 Sec. (24.2-36.6)
[2019-10-01 23:37] LABS: Calcium 9.5 mg/dL (8.4-10.2)
--- NOTE | 2019-10-02 01:27 | Emergency Department Report ---
ED Chest Pain HPI - General Chief Complaint: Chest Pain Stated Complaint: CHEST PAIN Time Seen by Provider: 10/01/19 22:10 Source: patient Mode of arrival: Ambulatory Limitations: No Limitations - History of Present Illness Initial Comments: Patient is a 78-year-old male that presents emergency room with complaints of chest pain x2 days. Patient states over the past 2 months has had intermittent chest pain after he eats. Patient states that over the last 48 hours is now become chest pain after he eats every time along with shortness of breath. Nathan ryan states today he a fried foods for each meal and his acid reflux and chest pain and burning sensation have worsened. Patient states that there is no change in his chest pain with activity or movement. Patient states that his pain is epigastric and radiates to his chest. Patient describes the pain as a burning. Patient states he exercises daily. Patient states when he exercise he has no chest pain or shortness of breath. Patient states when he has the chest pain it is a 4 out of 10. Patient states that he has not eaten for a while and his chest pain is a 0 out of 10 now MD Complaint: chest pain -: Sudden Onset: during rest Pain Location: substernal, left chest, right chest, epigastric Severity scale (0 -10): 0 Consistency: now resolved Improves With: antacids Worsens With: eating re: dyspnea. denies: nausea, vomting, diaphoresis Other Symptoms: denies: cough, fever, syncope, rash, acid taste in mouth, leg swelling, palpitations, burping Treatments Prior to Arrival: other Aspirin use within the Past 7 Days: (0) No - Related Data On Oral Contraceptives: No Previous Rx's Medication Instructions Recorded Last Taken Type Triamterene [Dyrenium] 37.5 mg PO BID #60 capsule 09/15/18 Unknown Rx Colchicine [Mitigare] 0.6 mg PO DAILY #11 capsule 11/15/18 Unknown Rx Ibuprofen [Motrin] 600 mg PO Q8H PRN #20 tablet 11/15/18 Unknown Rx Prednisone [predniSONE 10 mg 10 mg PO .TAPER #1 tab.ds.pk 12/03/18 Unknown Rx (6-Day Pack, 21 Tabs)] Ondansetron [Zofran Odt] 4 mg PO Q8HR PRN #14 tab.rapdis 01/08/19 Unknown Rx Prednisone [predniSONE 10 mg 10 mg PO .TAPER #1 tab.ds.pk 01/08/19 Unknown Rx (6-Day Pack, 21 Tabs)] traMADoL [Ultram 50 MG tab] 50 mg PO Q4HR PRN #14 tablet 01/08/19 Unknown Rx Prednisone [predniSONE 5 mg (6-Day 5 mg PO .TAPER #1 tab.ds.pk 03/16/19 Unknown Rx Pack, 21 Tabs)] Prednisone [predniSONE 10 mg 10 mg PO .TAPER #1 tab.ds.pk 04/07/19 Unknown Rx (6-Day Pack, 21 Tabs)] Esomeprazole Magnesium [NexIUM] 40 mg PO QDAY 20 Days #20 10/02/19 Unknown Rx capsule. Allergies Allergy/AdvReac Type Severity Reaction Status Date / Time Penicillins Allergy Rash Verified 03/16/19 12:57 Heart Score - HEART Score History: Slightly suspicious EKG: Normal Age: > 65 Risk factors: No known risk factors Troponin: < normal limit HEART Score: 2 ED Review of Systems ROS: Stated complaint: CHEST PAIN Other details as noted in HPI Constitutional: denies: chills, fever Eyes: denies: eye pain, eye discharge, vision change ENT: denies: ear pain, throat pain Respiratory: shortness of breath. denies: cough, wheezing Cardiovascular: chest pain. denies: palpitations Endocrine: no symptoms reported Gastrointestinal: abdominal pain. denies: nausea, diarrhea Genitourinary: denies: urgency, dysuria Musculoskeletal: denies: back pain, joint swelling, arthralgia Skin: denies: rash, lesions Neurological: denies: headache, weakness, paresthesias Psychiatric: denies: anxiety, depression Hematological/Lymphatic: denies: easy bleeding, easy bruising ED Past Medical Hx - Past Medical History Previous Medical History?: Yes Hx Hypertension: Yes Hx Renal Disease: Yes Hx Arthritis: Yes (GOUT) Additional medical history: Chronic back pain. Gout - Surgical History Past Surgical History?: No - Family History Family history: no significant - Social History Smoking Status: Former Smoker Substance Use Type: None - Medications Home Medications: Home Medications Medication Instructions Recorded Confirmed Last Taken Type Triamterene [Dyrenium] 37.5 mg PO BID #60 capsule 09/15/18 Unknown Rx Colchicine [Mitigare] 0.6 mg PO DAILY #11 capsule 11/15/18 Unknown Rx Ibuprofen [Motrin] 600 mg PO Q8H PRN #20 tablet 11/15/18 Unknown Rx Prednisone [predniSONE 10 mg 10 mg PO .TAPER #1 tab.ds.pk 12/03/18 Unknown Rx (6-Day Pack, 21 Tabs)] Ondansetron [Zofran Odt] 4 mg PO Q8HR PRN #14 tab.rapdis 01/08/19 Unknown Rx Prednisone [predniSONE 10 mg 10 mg PO .TAPER #1 tab.ds.pk 01/08/19 Unknown Rx (6-Day Pack, 21 Tabs)] traMADoL [Ultram 50 MG tab] 50 mg PO Q4HR PRN #14 tablet 01/08/19 Unknown Rx Prednisone [predniSONE 5 mg (6-Day 5 mg PO .TAPER #1 tab.ds.pk 03/16/19 Unknown Rx Pack, 21 Tabs)] Prednisone [predniSONE 10 mg 10 mg PO .TAPER #1 tab.ds.pk 04/07/19 Unknown Rx (6-Day Pack, 21 Tabs)] Esomeprazole Magnesium [NexIUM] 40 mg PO QDAY 20 Days #20 10/02/19 Unknown Rx capsule. ED Physical Exam - General Limitations: No Limitations General appearance: alert, in no apparent distress - Head Head exam: Present: atraumatic, normocephalic - Eye Eye exam: Present: normal appearance - ENT ENT exam: Present: mucous membranes moist - Neck Neck exam: Present: normal inspection - Respiratory Respiratory exam: Present: normal lung sounds bilaterally, chest wall tenderness. Absent: respiratory distress - Cardiovascular Cardiovascular Exam: Present: regular rate, normal rhythm. Absent: systolic murmur, diastolic murmur, rubs, gallop - GI/Abdominal GI/Abdominal exam: Present: soft, tenderness (mild epigastric ttp), normal bowel sounds - Rectal Rectal exam: Present: deferred - Extremities Exam Extremities exam: Present: normal inspection - Back Exam Back exam: Present: normal inspection - Neurological Exam Neurological exam: Present: alert, oriented X3 - Psychiatric Psychiatric exam: Present: normal affect, normal mood - Skin Skin exam: Present: warm, dry, intact, normal color. Absent: rash ED Course Vital Signs 10/01/19 10/02/19 20:41 02:08 Temperature 98.1 F Pulse Rate 79 65 Respiratory 20 12 Rate Blood Pressure 175/71 Blood Pressure 167/80 [left arm] O2 Sat by Pulse 99 100 Oximetry - Reevaluation(s) Reevaluation #1: Patient is status post GI cocktail. Patient states all of his symptoms have resolved. Patient states he does not have any epigastric tenderness. I discussed all results and clinical findings with patient. I discussed plan of care with patient. Patient agrees with plan of care. Patient is stable for di scharge. Patient will be discharged home. Patient given discharge instructions. Patient voiced understanding of discharge instructions. 10/02/19 02:41 ED Medical Decision Making - Lab Data Result diagrams: 10/01/19 22:57 10/01/19 22:57 - EKG Data -: EKG Interpreted by Me EKG shows normal: sinus rhythm, axis, intervals, QRS complexes, ST-T waves Rate: normal - Radiology Data Radiology results: report reviewed, image reviewed interpreted by me: No acute findings on chest x-ray. - Medical Decision Making Patient is a 78-year-old male who presents emergency room with complaints of chest pain for 2 days. Patient's chest pain only occurred after eating. Patient states that his chest pain and shortness of breath occurred these last 2 days after eating fried foods. Patient given a GI cocktail and all of his symptoms resolved. Patient's labs unremarkable except for his chronic kidney disease. Patient found to have an elevated troponin most likely secondary to kidney disease. Patient EKG shows no acute findings. Patient's chest x-ray is negative for acute findings. Repeat troponin done and original troponin was 0.037 and the repeat was 0.027. Troponin decreased. - Differential Diagnosis gerd. Gastritis. Chest pain. Critical care attestation.: If time is entered above; I have spent that time in minutes in the direct care of this critically ill patient, excluding procedure time. ED Disposition Clinical Impression: Epigastric abdominal pain Chest pain Qualifiers: Chest pain type: unspecified Qualified Code(s): R07.9 - Chest pain, unspecified GERD (gastroesophageal reflux disease) Qualifiers: Esophagitis presence: with esophagitis Qualified Code(s): K21.0 - Gastro-esoph ageal reflux disease with esophagitis CKD (chronic kidney disease) Qualifiers: Chronic kidney disease stage: unspecified stage Qualified Code(s): N18.9 - Chronic kidney disease, unspecified Gastritis Qualifiers: Gastritis type: unspecified gastritis Chronicity: acute Gastritis bleeding: without bleeding Qualified Code(s): K29.00 - Acute gastritis without bleeding Disposition: TO HOME OR SELFCARE Is pt being admited?: No Does the pt Need Aspirin: No Condition: Stable Instructions: Chest Pain (ED), Peptic Ulcer (ED), Gastritis (ED), Chronic Kidney Disease (ED), Diet for Ulcers and Gastritis (ED), Costochondritis (ED), Gastroesophageal Reflux Disease (ED) Additional Instructions: Patient to follow-up with primary care in 2 to 3 days. Patient to follow-up with [facility] technician in 2 to 3 days. Patient to follow-up with [facility]ogshead head matcher in 2 to 3 days. Patient to return to ER if condition worsens,, changes or new symptoms arise. Patient to rest. Patient take Tylenol as needed for pain. Patient to take meds as directed. Patient to eat a reflux diet. Prescriptions: Esomeprazole Magnesium [NexIUM] 40 mg PO QDAY 20 Days #20 capsule. Referrals: VALENTIN TORRES MD [Primary Care Provider] - 2-3 Days LALIT VILLARREAL MD [Staff Physician] - 2-3 Days NICHOLE ISRAEL MD [Staff Physician] - 2-3 Days Time of Disposition: 02:42
[2019-10-02] MEDS: LIDOCAINE VISCOUS 2% 15 ML ORAL LIQD PO ONE (02:08)
[2019-10-02] MEDS: ALUM-MAG HYDROXIDE-SIMETHICONE 200-200-20MG/5ML ORAL LIQD 30 ML PO ONE (02:08)
[2019-10-02 03:39] VITALS: BP 155/76
[2019-10-02 08:43] LABS: Chol/HDL Ratio 4.42 %
== END 2019-10-02 03:30 | disposition home or self-care (01) ==
LOC: ED 20:30
DX: K21.9 Gastro-esophageal reflux disease without esophagitis (principal); I12.9 Hypertensive chronic kidney disease with stage 1 through stage 4 chronic kidney disease, or unspecified chronic kidney disease; N18.9 Chronic kidney disease, unspecified; K29.00 Acute gastritis without bleeding; R07.89 Other chest pain; M19.90 Unspecified osteoarthritis, unspecified site; Z87.891 Personal history of nicotine dependence; Z79.1 Long term (current) use of non-steroidal anti-inflammatories (NSAID); Z79.899 Other long term (current) drug therapy; Z88.0 Allergy status to penicillin
CPT/HCPCS: 36415; 71046; 80053; 80061; 84484; 85025; 85610; 85730; 93005; 93010